=== PATIENT | female | born 1930 | race Caucasian/White ===

== ENCOUNTER → 2019-06-15 | Outpatient (CLI) | payer MEDICARE, MEDICAID ==
--- NOTE | 2019-06-15 13:53 | RADIOLOGY REPORT (SQ) ---
EXAM DESCRIPTION: CHEST 2 VIEWS COMPLETED DATE/TIME: 06/15/2019 1:41 pm REASON FOR STUDY: ENCTR FOR RESPIRATORY TB (Z11.1) COMPARISON: None. EXAM PARAMETERS: NUMBER OF VIEWS: two views TECHNIQUE: Digital Frontal and Lateral radiographic views of the chest acquired. RADIATION DOSE: NA LIMITATIONS: none FINDINGS: LUNGS AND PLEURA: Emphysematous change with chronic appearing interstitial opacities. No focal consolidation, pleural effusion or pneumothorax. MEDIASTINUM AND HILAR STRUCTURES: No discrete mass. HEART AND VASCULAR STRUCTURES: Enlarged cardiac silhouette. Aortic atherosclerosis. BONES: Decreased mineralization. Exaggerated thoracic kyphosis. Partially visualized reverse should er arthroplasty on the right. HARDWARE: Left-sided cardiac pacer with leads overlying right atrium and right ventricle. Surgical c lips overlie upper abdomen. Partially visualized shoulder arthroplasty on the right. OTHER: No other significant finding. IMPRESSION: Emphysematous change without evidence of acute cardiopulmonary process. Enlarged cardiac silhouette. TECHNICAL DOCUMENTATION: JOB ID: [id number] [employer]- All Rights Reserved Reading location - IP/workstation name: [email or web address]
== END ==
LOC: RAD 13:18
PROVIDERS: ATTEND Internal Medicine
DX: Z11.1 Encounter for screening for respiratory tuberculosis (principal)
CPT/HCPCS: 71046

== ENCOUNTER 2019-07-20 13:58 | Emergency (ER) | payer MEDICARE, MEDICAID ==
[2019-07-20] MEDS ORDERED: MORPHINE SULFATE 10 MG/ML INJ IV ONE ×2 (15:28→18:00)
[2019-07-20] MEDS ORDERED: ONDANSETRON HCL INJ/PF 4 MG/2 ML SDV IV ONE ×2 (15:29→18:00)
--- NOTE | 2019-07-20 15:35 | ER Document Report ---
ED General - General Chief Complaint: Vomiting Stated Complaint: WEAKNESS Time Seen by Provider: 07/20/19 15:13 TRAVEL OUTSIDE OF THE [place] IN LAST 30 DAYS: No - HPI Notes: Patient is an 89-year-old female, sent in for evaluation from the [facility] home. She is had increased malaise, notes that she said vomiting over the last several weeks. She states her belly feels bloated, and that she is having issues with constipation. She cannot tell me when her last bowel movement was, but states is always very firm. Her emesis has been nonbloody, nonbilious. She states primarily that it made up of the medicines that she has taken in the Glucerna she takes her medicine with. She complains of lower back pain, but really cannot give me a timeline on that. She does have a history of dementia. She states she is felt as if she had fever and chills, but there is no remark in the notes of any recent febrile illness. - Related Data Allergies/Adverse Reactions: No Known Allergies Allergy (Unverified 07/20/19 20:07) Home Medications: Atorvastatin, Eliquis, Lasix, melatonin, methimazole, Toprol, omeprazole, Ranexa, Risperdal, Zoloft, Tradjenta Past Medical History - General Information source: Patient, Outside Facility Records - Social History Smoking Status: Unknown if Ever Smoked Family History: Reviewed & Not Pertinent Patient has suicidal ideation: No Patient has homicidal ideation: No - Past Medical History Cardiac Medical History: Reports: Hx Atrial Fibrillation, Hx Congestive Heart Failure Endocrine Medical History: Reports: Hx Diabetes Mellitus Type 2, Hx Hyperthyroidism GI Medical History: Reports: Hx Gastroesophageal Reflux Disease Psychiatric Medical History: Reports: Hx Dementia Review of Systems - Review of Systems Constitutional: See HPI EENT: No symptoms reported Cardiovascular: No symptoms reported Respiratory: No symptoms reported Gastrointestinal: See HPI Genitourinary: No symptoms reported Musculoskeletal: See HPI Skin: No symptoms reported Neurological/Psychological: No symptoms reported Physical Exam - Vital signs Vitals: Resp Pulse Ox 18 99 07/20/19 14:13 07/20/19 14:13 - Notes Notes: This is a frail-appearing 89-year-old female, lying in the bed, leaning to her right side. She is breathing comfortably, but any attempt to move her causes significant low back pain. Head is normocephalic and atraumatic, pupils are equal round, reactive to light. Oral mucosa slightly dry. Heart is regular, lungs are clear to auscultation bilaterally. 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 Abdomen is distended, diffusely tender without rebound or guarding. No peritoneal signs. Extremities without cyanosis, clubbing, edema. No posterior calf tenderness. Peripheral pulses are equal. Patient is awake and alert, disoriented to time but pleasant and cooperative. Course - Re-evaluation Re-evalutation: 07/20/19 19:54 Patient presents emergency department for evaluation of some nausea and vomiting, over the last several weeks, as well as the abdominal pain. She is a poor historian secondary to her dementia. Catheterized urine specimen was obtained, and a significant amount of urine was drained from the bladder, over a liter. CT scan of the abdomen pelvis revealed bladder distention and urinary retention as well as fecal stasis. My strong suspicion is that it is the fecal stasis that was leading to this patient's urinary retention. Despite the large amount of urine in her bladder, she has no signs of hydronephrosis or hydroureter. Her creatinine is 1.33, I do not know if this is close to her baseline, but certainly it is not significant enough for me to be concerned about chronic urinary retention and resultant acute renal failure at this point. Laboratory ivestigations are otherwise unremarkable. Enema ordered, will continue to monitor. 07/20/19 22:01 Patient disimpacted, received part of an enema and had results. My suspicion is that this is all secondary to fecal stasis, constipation, fecal impaction. Again despite her urinary retention, she has no signs of hydronephrosis. She is feeling improved, resting comfortably, abdomen is soft. I will get and send her home with a prescription for Colace to be taken twice daily. She is to follow- up with primary care, return to the ED with worsening or new concerning symptoms of any sort. - Vital Signs Vital signs: Temp Pulse Resp BP Pulse Ox 98.8 F 76 15 118/52 L 100 07/20/19 18:21 07/20/19 14:15 07/20/19 21:01 07/20/19 21:00 07/20/19 21:01 - Laboratory Result Diagrams: 07/20/19 18:50 07/20/19 18:50 Laboratory results interpreted by me: 07/20/19 07/20/19 18:50 18:50 Hgb 11.9 L Hct 35.3 L MCV 79 L MCH 26.7 L RDW 16.4 H Sodium 133.3 L Chloride 91 L Carbon Dioxide 31 H BUN 48 H Creatinine 1.33 H Est GFR ( Amer) 46 L Est GFR (MDRD) Non-Af 38 L Glucose 214 H Albumin 3.4 L - Diagnostic Test Radiology reviewed: Reports reviewed Radiology results interpreted by me: 07/20/19 22:01 Abdomen/Pelvis CT 07/20/19 15:29 IMPRESSION: 1. Distended rectum and colon that are filled with fecal mature - correlate for clinical findings to exclude stercoral colitis and fecal impaction. 2. Distended urinary bladder - correlate with clinical findings to exclude outlet obstruction. - EKG Interpretation by Me Additional EKG results interpreted by me: 07/20/19 22:02 Atrial fib/flutter with ventricular paced escape beats. Rate of 75 bpm. Normal axis, nonspecific ST changes, but no acute changes concerning for ischemia or infarction. Discharge - Discharge Clinical Impression: Urinary retention, Fecal impaction Constipation Qualifiers: Constipation type: unspecified constipation type Qualified Code(s): K59.00 - Constipation, unspecified Condition: Stable Disposition: OTHER Instructions: Fecal Impaction ([facility]), Laxative ([facility]) Additional Instructions: Increase fluid intake, take Colace as needed for constipation. Follow-up with primary care next week. Return to the emergency department with worsening or new concerning symptoms of any sort.
--- NOTE | 2019-07-20 16:14 | RADIOLOGY REPORT (SQ) ---
EXAM DESCRIPTION: CT ABD/PELVIS NO ORAL OR IV COMPLETED DATE/TIME: 07/20/2019 3:44 pm REASON FOR STUDY: abdominal distension, bloating COMPARISON: None. TECHNIQUE: CT scan of the abdomen and pelvis performed without intravenous or oral contrast. Images reviewed with lung, soft tissue, and bone windows. Reconstructed coronal and sagittal MPR images revi ewed. All images stored on PACS. All CT scanners at this facility use dose modulation, iterative reconstruction, and/or weight based d osing when appropriate to reduce radiation dose to as low as reasonably achievable (ALARA). [facility]: Dose Right [facility]: CareDose [facility]: Dose Right [facility]: Teradose 4D [facility]: Smart [employer] RADIATION DOSE: CT Rad equipment meets quality standard of care and radiation dose reduction techniq ues were employed. CTDIvol: 7.8 mGy. DLP: 396 mGy-cm.mGy. LIMITATIONS: None. FINDINGS: LOWER CHEST: Cardiomegaly. No pericardial effusion, basilar consolidation, or pleural eff usion. NON-CONTRASTED LIVER, SPLEEN, ADRENALS: Evaluation is limited due to the absence of intravenous contr ast. The liver morphology is non cirrhotic. There is no CT evidence of hepatic steatosis. The sple en is normal in size. There is no abnormality of the adrenal glands. PANCREAS: There is no abnormality of the pancreas. GALLBLADDER: Surgically absent. RIGHT KIDNEY AND URETER: Evaluation is limited due to the absence of intravenous contrast. There is no hydronephrosis, nephrolithiasis, hydroureter or ureterolithiasis LEFT KIDNEY AND URETER: Evaluation is limited due to the absence of intravenous contrast. There is n o hydronephrosis, nephrolithiasis, hydroureter or ureterolithiasis. AORTA AND RETROPERITONEUM: No aneurysmal dilatation of the abdominal aorta. BOWEL AND PERITONEAL CAVITY: Hiatal hernia. The colon is distended and filled with fecal material. The rectum is also distended with fecal material and there is associated mural thickening. There is no pneumatosis, free intraperitoneal air or evidence of obstruction. There is pericolonic or perient javy inflammation. APPENDIX: Normal. PELVIS, BLADDER, AND ABDOMINAL WALL:The urinary bladder is distended. There is no pelvic adenopathy, free fluid or mass. There are findings of prior ventral hernia repair on the right side. There is no abdominal wall mass. BONES: Osteopenia and advanced degenerative spondylosis and facet arthropathy of the lumbar spine. T here is no fracture. OTHER: No other findings. IMPRESSION: 1. Distended rectum and colon that are filled with fecal mature - correlate for clinical findings to exclude stercoral colitis and fecal impaction. 2. Distended urinary bladder - correlate with clinical findings to exclude outlet obstruction. COMMENT: Quality ID # [id number]: Final reports with documentation of one or more dose reduction techniques (e.g., Automated exposure control, adjustment of the mA and/or kV according to patient size, use of iterative reconstruction technique) TECHNICAL DOCUMENTATION: JOB ID: [id number] [employer]- All Rights Reserved Reading location - IP/workstation name: [email or web address]
[2019-07-20 18:16] LABS: APPEARANCE,URINE CLEAR; BILIRUBIN,URINE NEGATIVE (NEGATIVE); COLOR,URINE AMBER; GLUCOSE, URINE NEGATIVE (NEGATIVE); KETONES,URINE NEGATIVE (NEGATIVE); LEUKOCYTE ESTERASE,URINE NEGATIVE (NEGATIVE); NITRITE,URINE NEGATIVE (NEGATIVE); PROTEIN,URINE NEGATIVE (NEGATIVE); URINE SPECIFIC GRAVITY 1.015; UROBILINOGEN,URINE NEGATIVE mg/dL (<2.0)
[2019-07-20 19:07] LABS: ABSOLUTE LYMPHOCYTES (AUTO) 1.5 10^3/uL (0.5-4.7); ABSOLUTE NEUT (AUTO) 7.3 10^3/uL (1.7-8.2); BASOPHILS % (AUTO) 0.4 % (0-2); EOSINOPHILS % (AUTO) 0.3 % (0-6); HEMATOCRIT 35.3 % (36.0-47.0); HEMOGLOBIN 11.9 g/dL (12.0-15.5); LYMPHOCYTES % (AUTO) 15.5 % (13-45); MEAN CORPUSCULAR HEMOGLOBIN 26.7 pg (27.0-33.4); MEAN CORPUSCULAR HGB CONC 33.7 g/dL (32.0-36.0); MEAN CORPUSCULAR VOLUME 79 fl (80-97); MONOCYTES % (AUTO) 10.1 % (3-13); PLATELET COUNT 329 10^3/uL (150-450); RED BLOOD COUNT 4.47 10^6/uL (3.72-5.28); RED CELL DISTRIBUTION WIDTH 16.4 % (11.5-14.0); SEGMENTED NEUTROPHILS % (AUTO) 73.7 % (42-78); TOTAL CELLS COUNTED % (AUTO) 100 %; WHITE BLOOD COUNT 9.9 10^3/uL (4.0-10.5)
[2019-07-20 19:22] LABS: ALBUMIN 3.4 g/dL (3.5-5.0); ALKALINE PHOSPHATASE 103 U/L (38-126); ANION GAP 11 (5-19); ASPARTATE AMINO TRANSFERASE 20 U/L (14-36); BILIRUBIN,DIRECT 0.4 mg/dL (0.0-0.4); BILIRUBIN,TOTAL 0.8 mg/dL (0.2-1.3); BLOOD UREA NITROGEN 48 mg/dL (7-20); CALCIUM 9.6 mg/dL (8.4-10.2); CARBON DIOXIDE 31 mmol/L (22-30); CHLORIDE 91 mmol/L (98-107); GLUCOSE 214 mg/dL (75-110); POTASSIUM 4.3 mmol/L (3.6-5.0); TOTAL PROTEIN 6.7 g/dL (6.3-8.2)
[2019-07-20 22:12] VITALS: BP 123/62
--- NOTE | 2019-07-20 23:11 | EKG REPORT ---
SEVERITY:- ABNORMAL ECG - AFIB/FLUT AND V-PACED COMPLEXES LOW VOLTAGE IN FRONTAL LEADS : Confirmed by: Ary Monsalve MD 20-Jul-2019 23:10:18
== END 2019-07-21 00:05 | disposition other institution (70) ==
LOC: ER 13:58
DX: K56.41 Fecal impaction (principal); R33.9 Retention of urine, unspecified; R53.81 Other malaise; R11.2 Nausea with vomiting, unspecified; M54.5 Low back pain; R10.9 Unspecified abdominal pain; F03.90 Unspecified dementia, unspecified severity, without behavioral disturbance, psychotic disturbance, mood disturbance, and anxiety; E11.9 Type 2 diabetes mellitus without complications; E05.90 Thyrotoxicosis, unspecified without thyrotoxic crisis or storm; K21.9 Gastro-esophageal reflux disease without esophagitis; Z79.84 Long term (current) use of oral hypoglycemic drugs; Z79.899 Other long term (current) drug therapy; Z79.02 Long term (current) use of antithrombotics/antiplatelets; Z95.0 Presence of cardiac pacemaker
CPT/HCPCS: 93005; 99285; 96374; 96375; 36415; 85025; 80053; 81001; 74176; 93010; J2270; J2405

== ENCOUNTER 2019-08-04 09:30 | Inpatient (IN) | payer MEDICARE, MEDICAID ==
--- NOTE | 2019-08-04 10:00 | ER Document Report ---
ED Medical Screen (RME) - General Stated Complaint: AMS Time Seen by Provider: 08/04/19 09:50 Mode of Arrival: Medic Information source: Transfer Record Notes: Patient presents as a transfer from the [facility] with complaints of altered mental status that started around 830 this morning. Patient normally is confused at her baseline although is verbal per the care facility. Patient presents awake alert, patient moaning but will respond appropriately to questions when asked here today. Patient was asked if she has pain and complained of back tenderness. Patient does have a strong smell to urine. I have greeted and performed a rapid initial assessment of this patient. A comprehensive ED assessment and evaluation of the patient, analysis of test results and completion of the medical decision making process will be conducted by additional ED providers. TRAVEL OUTSIDE OF THE [place] IN LAST 30 DAYS: No - Related Data Allergies/Adverse Reactions: No Known Allergies Allergy (Unverified 07/20/19 20:07) Past Medical History - Past Medical History Cardiac Medical History: Reports: Hx Atrial Fibrillation, Hx Congestive Heart Failure Endocrine Medical History: Reports: Hx Diabetes Mellitus Type 2, Hx Hyperthyroidism GI Medical History: Reports: Hx Gastroesophageal Reflux Disease Psychiatric Medical History: Reports: Hx Dementia Physical Exam - General Notes: Awake, moans but will answer simple questions appropriately. Strong smell to urine.
[2019-08-04 11:06] LABS: HEMATOCRIT 43.6 % (36.0-47.0); HEMOGLOBIN 14.2 g/dL (12.0-15.5); MEAN CORPUSCULAR HGB CONC 32.6 g/dL (32.0-36.0); MEAN CORPUSCULAR VOLUME 80 fl (80-97); PLATELET COUNT 462 10^3/uL (150-450); RED BLOOD COUNT 5.48 10^6/uL (3.72-5.28); RED CELL DISTRIBUTION WIDTH 16.6 % (11.5-14.0); WHITE BLOOD COUNT 11.7 10^3/uL (4.0-10.5)
--- NOTE | 2019-08-04 11:21 | RADIOLOGY REPORT (SQ) ---
EXAM DESCRIPTION: CT HEAD WITHOUT COMPLETED DATE/TIME: 08/04/2019 11:12 am REASON FOR STUDY: AMS COMPARISON: None. TECHNIQUE: Axial images acquired through the brain without intravenous contrast. Images reviewed wi th bone, brain and subdural windows. Additional sagittal and coronal reconstructions were generated. Images stored on PACS. All CT scanners at this facility use dose modulation, iterative reconstruction, and/or weight based d osing when appropriate to reduce radiation dose to as low as reasonably achievable (ALARA). [facility]: Dose Right [facility]: CareDose [facility]: Dose Right [facility]: Teradose 4D [facility]: Smart [employer] RADIATION DOSE: CT Rad equipment meets quality standard of care and radiation dose reduction techniq ues were employed. CTDIvol: 53.2 mGy. DLP: 1928 mGy-cm.mGy. LIMITATIONS: None. FINDINGS: VENTRICLES: Prominent. CEREBRUM: No masses. No hemorrhage. No midline shift. Areas of low density in the white matter mos t likely due to chronic micro-vascular ischemic change. No evidence for acute infarction. CEREBELLUM: No masses. No hemorrhage. No alteration of density. No evidence for acute infarction. EXTRAAXIAL SPACES: Age-related involutional change. No fluid collections. No masses. ORBITS AND GLOBE: No intra- or extraconal masses. Normal contour of globe without masses. CALVARIUM: No fracture. PARANASAL SINUSES: Marked leftward sphenoid sinus disease. SOFT TISSUES: No mass or hematoma. OTHER: No other significant finding. IMPRESSION: CHRONIC CHANGES OF ATROPHY AND MICROVASCULAR ISCHEMIA. Marked leftward sphenoid sinus disease. NO ACUTE PROCESS. EVIDENCE OF ACUTE STROKE: NO. TECHNICAL DOCUMENTATION: JOB ID: [id number] Quality ID # [id number]: Final reports with documentation of one or more dose reduction techniques (e.g., Au tomated exposure control, adjustment of the mA and/or kV according to patient size, use of iterative reconstruction technique) 2010 [employer]- All Rights Reserved Reading location - IP/workstation name: [email or web address]
[2019-08-04 11:25] LABS: ALKALINE PHOSPHATASE 123 U/L (38-126); ANION GAP 10 (5-19); ASPARTATE AMINO TRANSFERASE 37 U/L (14-36); BILIRUBIN,DIRECT 0.4 mg/dL (0.0-0.4); BILIRUBIN,TOTAL 0.9 mg/dL (0.2-1.3); BLOOD UREA NITROGEN 44 mg/dL (7-20); CARBON DIOXIDE 33 mmol/L (22-30); CHLORIDE 98 mmol/L (98-107); GLUCOSE 178 mg/dL (75-110); POTASSIUM 4.1 mmol/L (3.6-5.0); TOTAL PROTEIN 8.5 g/dL (6.3-8.2)
[2019-08-04 11:30] LABS: ABSOLUTE LYMPHOCYTES# (MANUAL) 2.6 10^3/uL (0.5-4.7); ABSOLUTE MONOCYTES # (MANUAL) 0.9 10^3/uL (0.1-1.4); BAND NEUTROPHILS % (MANUAL) 1 % (3-5); BASOPHILS % (MANUAL) 0 % (0-2); EOSINOPHILS % (MANUAL) 0 % (0-6); LYMPHOCYTES % (MANUAL) 22 % (13-45); METAMYELOCYTES % (MANUAL) 2 % (0); MONOCYTES % (MANUAL) 8 % (3-13); SEGMENTED NEUTROPHILS % (MAN) 67 % (42-78); TOTAL CELLS COUNTED 100
[2019-08-04] MEDS ORDERED: NORMAL SALINE 500 ML IV ONE ×2 (11:30→13:07)
[2019-08-04 11:31] LABS: ANISOCYTOSIS 1+; PLATELET COMMENT INCREASED; PLATELET GIANT PRESENT; PLATELET LARGE PRESENT
--- NOTE | 2019-08-04 11:31 | ER Document Report ---
ED Dizziness/Weakness - General Chief Complaint: Altered Mental Status Stated Complaint: AMS Time Seen by Provider: 08/04/19 09:50 Mode of Arrival: Medic Notes: Patient is a 89-year-old female with a history of Alzheimer's, diabetes, A. fib, congestive heart failure, acid reflux who presents to the emergency department with a chief complaint of confusion. Patient does reside at a [facility] facility. They report that around 830 the morning this morning they noticed that she was altered. They did report that her baseline is normally confused but she is verbal. They report she appears more tired than her normal. When asking the patient if she has any complaints she states that her lower back hurts. Patient is unable to give much of a history. Patient does have a strong odor of urine. TRAVEL OUTSIDE OF THE [place] IN LAST 30 DAYS: No - Related Data Allergies/Adverse Reactions: No Known Allergies Allergy (Unverified 07/20/19 20:07) Past Medical History - General Information source: Transfer Record - Social History Smoking Status: Unknown if Ever Smoked Chew tobacco use (# tins/day): No Lives with: Longterm Family History: Reviewed & Not Pertinent Patient has suicidal ideation: No Patient has homicidal ideation: No - Past Medical History Cardiac Medical History: Reports: Hx Atrial Fibrillation, Hx Congestive Heart Failure Pulmonary Medical History: Reports: None EENT Medical History: Reports: None Neurological Medical History: Reports: None Endocrine Medical History: Reports: Hx Diabetes Mellitus Type 2, Hx Hyperthyroidism Renal/ Medical History: Reports: None Malignancy Medical History: Reports: None GI Medical History: Reports: Hx Gastroesophageal Reflux Disease Musculoskeletal Medical History: Reports None Skin Medical History: Reports None Psychiatric Medical History: Reports: Hx Dementia Traumatic Medical History: Reports: None Infectious Medical History: Reports: None Review of Systems - Review of Systems Constitutional: See HPI EENT: No symptoms reported Cardiovascular: No symptoms reported Respiratory: No symptoms reported Gastrointestinal: No symptoms reported Genitourinary: See HPI Female Genitourinary: No symptoms reported Musculoskeletal: See HPI Skin: No symptoms reported Hematologic/Lymphatic: No symptoms reported Neurological/Psychological: No symptoms reported Physical Exam - Vital signs Vitals: Resp Pulse Ox 17 99 08/04/19 09:49 08/04/19 09:49 - Notes Notes: GENERAL: Sleeping, will arouse to verbal stimuli, appears dehydrated and lethargic. Confused. HEAD: Atraumatic, normocephalic. EYES: Pupils equal round and reactive to light, extraocular movements intact, sclera anicteric, conjunctiva are normal. ENT: Nares patent, oropharynx clear without exudates. Extremely dry mucous membranes. NECK: Normal range of motion, supple without lymphadenopathy or JVD. LUNGS: Breath sounds clear to auscultation bilaterally and equal. No wheezes rales or rhonchi. HEART: Regular rate and rhythm without murmurs, rubs or gallops. ABDOMEN: Soft, mild lower abdominal tenderness with palpation, hypoactive bowel sounds. No guarding, no rebound. No masses appreciated. BACK: No cervical, thoracic, lumbar midline tenderness. No saddle anesthesia, normal distal neurovascular exam. GENITOURINARY: Deferred. EXTREMITIES: Normal range of motion, no pitting or edema. No clubbing or cyanosis. NEUROLOGICAL: Hx. Dementia/Alzheimers, alert to self, aware of date of , unsure of why she is at the hospital, current president or year. PSYCH: Confused. SKIN: Warm, Dry, normal turgor, no rashes or lesions noted. Course - Re-evaluation Re-evalutation: 08/04/19 11:31 Also unable to obtain much of a history from the patient as she does have a history of Alzheimer's and dementia. Patient was sent here for evaluation as she appeared to be more confused than her normal. Patient is currently sleeping but will arouse to verbal stimuli. Basic labs including a urinalysis, head CT and chest x-ray were ordered by the triage provider. We will continue to monitor. Patient does not have any family at the bedside. Patient does appear quite dehydrated as her mouth and lips are extremely dry. Patient does have a history of congestive heart failure. Will initiate 500 mLs saline bolus to start. 08/04/19 13:08 Patient is noted to have a urinary tract infection. Patient does not have any significant leukocytosis. Patient does have an elevated BUN and creatinine which is just slightly worse than a few weeks ago. Patient tolerated first 500 mL's of saline without any difficulty or signs of fluid overload. Lungs are clear at this time. Will initiate a second 500 mL bolus of saline. Patient continues to sleep but does arouse with verbal stimuli. Patient does know her name and date of and that she is at the hospital. Patient does not have any current complaints. Unable to obtain much of a history from the patient due to her history of Alzheimer's and dementia. Will obtain a lactate to rule out sepsis. Patient is not tachycardic, hypotensive or febrile. 08/04/19 14:41 Patient has received a total of 1 L of saline via IV. Patient did tolerate this well. Patient remains normotensive, not tachycardic or hypoxic. Patient did receive 1 g of Rocephin for urinary tract infection. Upon reevaluation the patient will open her eyes to verbal stimuli, states that she is at the hospital but is not answering any other questions immediately falls right back to sleep. 08/04/19 15:01 I did consult with Prema Joiner nurse practitioner who will admit to the hospitalist service for altered mental status and urinary tract infection. I did attempt to call the patient's family member that was stated in the computer but there was no answer. - Vital Signs Vital signs: Temp Pulse Resp BP Pulse Ox 98.5 F 12 127/66 H 99 08/04/19 15:37 08/04/19 16:01 08/04/19 16:01 08/04/19 16:01 - Laboratory Result Diagrams: 08/04/19 10:45 08/04/19 10:45 Laboratory results interpreted by me: 08/04/19 08/04/19 08/04/19 10:45 10:45 12:00 WBC 11.7 H RBC 5.48 H MCH 26.0 L RDW 16.6 H Plt Count 462 H Band Neutrophils % 1 L Metamyelocytes % 2 H Carbon Dioxide 33 H BUN 44 H Creatinine 1.61 H Est GFR ( Amer) 37 L Est GFR (MDRD) Non-Af 30 L Glucose 178 H AST 37 H Total Protein 8.5 H Urine Blood SMALL H Urine Urobilinogen 2.0 H Ur Leukocyte Esterase SMALL H - Diagnostic Test Radiology reviewed: Reports reviewed Radiology results interpreted by me: 08/04/19 17:22 Laboratory 08/04/19 08/04/19 08/04/19 10:45 10:45 10:45 WBC 11.7 H RBC 5.48 H Hgb 14.2 Hct 43.6 MCV 80 MCH 26.0 L MCHC 32.6 RDW 16.6 H Plt Count 462 H Lymph % (Auto) Not Reportable Anderson % (Auto) Not Reportable Eos % (Auto) Not Reportable Baso % (Auto) Not Reportable Absolute Neuts (auto) Not Reportable Absolute Lymphs (auto) Not Reportable Absolute Monos (auto) Not Reportable Absolute Eos (auto) Not Reportable Absolute Basos (auto) Not Reportable Total Counted 100 Seg Neutrophils % Not Reportable Seg Neuts % (Manual) 67 Band Neutrophils % 1 L Lymphocytes % (Manual) 22 Monocytes % (Manual) 8 Eosinophils % (Manual) 0 Basophils % (Manual) 0 Metamyelocytes % 2 H Abs Neuts (Manual) 8.2 Abs Lymphs (Manual) 2.6 Abs Monocytes (Manual) 0.9 Absolute Eos (Manual) 0.0 Abs Basophils (Manual) 0.0 Large Platelets PRESENT Giant Platelets PRESENT Platelet Comment INCREASED Anisocytosis 1+ Sodium 140.5 Potassium 4.1 Chloride 98 Carbon Dioxide 33 H Anion Gap 10 BUN 44 H Creatinine 1.61 H Est GFR ( Amer) 37 L Est GFR (MDRD) Non-Af 30 L Glucose 178 H Lactic Acid Calcium 10.0 Magnesium 2.1 Total Bilirubin 0.9 Direct Bilirubin 0.4 Neonat Total Bilirubin Not Reportable Neonat Direct Bilirubin Not Reportable Neonat Indirect Bili Not Reportable AST 37 H ALT 28 Alkaline Phosphatase 123 Troponin I 0.014 Total Protein 8.5 H Albumin 4.0 Urine Color Urine Appearance Urine pH Ur Specific [place] Urine Protein Urine Glucose (UA) Urine Ketones Urine Blood Urine Nitrite Urine Bilirubin Urine Urobilinogen Ur Leukocyte Esterase Urine WBC (Auto) Urine RBC (Auto) Urine Bacteria (Auto) Urine WBC Clumps Squamous Epi Cells Auto Amorphous Sediment Auto Urine Mucus (Auto) Urine Ascorbic Acid 08/04/19 08/04/19 12:00 13:45 WBC RBC Hgb Hct MCV MCH MCHC RDW Plt Count Lymph % (Auto) Anderson % (Auto) Eos % (Auto) Baso % (Auto) Absolute Neuts (auto) Absolute Lymphs (auto) Absolute Monos (auto) Absolute Eos (auto) Absolute Basos (auto) Total Counted Seg Neutrophils % Seg Neuts % (Manual) Band Neutrophils % Lymphocytes % (Manual) Monocytes % (Manual) Eosinophils % (Manual) Basophils % (Manual) Metamyelocytes % Abs Neuts (Manual) Abs Lymphs (Manual) Abs Monocytes (Manual) Absolute Eos (Manual) Abs Basophils (Manual) Large Platelets Giant Platelets Platelet Comment Anisocytosis Sodium Potassium Chloride Carbon Dioxide Anion Gap BUN Creatinine Est GFR ( Amer) Est GFR (MDRD) Non-Af Glucose Lactic Acid 1.3 Calcium Magnesium Total Bilirubin Direct Bilirubin Neonat Total Bilirubin Neonat Direct Bilirubin Neonat Indirect Bili AST ALT Alkaline Phosphatase Troponin I Total Protein Albumin Urine Color DARK YELLOW Urine Appearance CLOUDY Urine pH 5.0 Ur Specific [place] 1.014 Urine Protein NEGATIVE Urine Glucose (UA) NEGATIVE Urine Ketones NEGATIVE Urine Blood SMALL H Urine Nitrite NEGATIVE Urine Bilirubin NEGATIVE Urine Urobilinogen 2.0 H Ur Leukocyte Esterase SMALL H Urine WBC (Auto) 45 Urine RBC (Auto) 6 Urine Bacteria (Auto) 2+ Urine WBC Clumps MANY Squamous Epi Cells Auto 1 Amorphous Sediment Auto TRACE Urine Mucus (Auto) RARE Urine Ascorbic Acid NEGATIVE Discharge - Discharge Clinical Impression: Lethargic Altered mental status Qualifiers: Altered mental status type: unspecified Qualified Code(s): R41.82 - Altered mental status, unspecified Urinary tract infection Qualifiers: Urinary tract infection type: site unspecified Hematuria presence: with hematuria Qualified Code(s): N39.0 - Urinary tract infection, site not specified Condition: Stable Disposition: ADMITTED INPATIENT Admitting Provider: Sadiq (Hospitalist) Unit Admitted: Telemetry
--- NOTE | 2019-08-04 11:37 | RADIOLOGY REPORT (SQ) ---
EXAM DESCRIPTION: CHEST SINGLE VIEW COMPLETED DATE/TIME: 08/04/2019 11:29 am REASON FOR STUDY: AMS COMPARISON: 06/15/2019 EXAM PARAMETERS: NUMBER OF VIEWS: One view. TECHNIQUE: Single frontal radiographic view of the chest acquired. RADIATION DOSE: NA LIMITATIONS: None. FINDINGS: LUNGS AND PLEURA: No opacities, masses or pneumothorax. No pleural effusion. MEDIASTINUM AND HILAR STRUCTURES: No masses. Contour normal. HEART AND VASCULAR STRUCTURES: Heart normal in size. Normal vasculature. BONES: Shoulder replacement on the right. HARDWARE: Cardiac hardware unchanged. OTHER: No other significant finding. IMPRESSION: NO ACUTE RADIOGRAPHIC FINDING IN THE CHEST. TECHNICAL DOCUMENTATION: JOB ID: [id number] [email or web address] All Rights Reserved Reading location - IP/workstation name: [email or web address]
[2019-08-04 12:20] LABS: AMORPHOUS SEDIMENT,URINE TRACE /HPF; APPEARANCE,URINE CLOUDY; BILIRUBIN,URINE NEGATIVE (NEGATIVE); GLUCOSE, URINE NEGATIVE (NEGATIVE); KETONES,URINE NEGATIVE (NEGATIVE); LEUKOCYTE ESTERASE,URINE SMALL (NEGATIVE); NITRITE,URINE NEGATIVE (NEGATIVE); PROTEIN,URINE NEGATIVE (NEGATIVE); URINE SPECIFIC GRAVITY 1.014
[2019-08-04 12:22] LABS: COLOR,URINE DARK YELLOW
[2019-08-04] MEDS ORDERED: CEFTRIAXONE 1 GM/D5W RTU 1 GM/50 ML RTUPB IV ONE (13:08)
[2019-08-04] MEDS ORDERED: MAG HYDROX/AL HYDROX/SIMETH SUSP 30 ML UDCUP PO PRN (15:12)
[2019-08-04] MEDS ORDERED: ALBUTEROL SULFATE 0.083% NEB 2.5 MG/3 ML AMPUL NEB PRN (15:12)
[2019-08-04] MEDS ORDERED: ONDANSETRON HCL INJ/PF 4 MG/2 ML SDV IV PRN (15:12)
[2019-08-04] MEDS ORDERED: MAGNESIUM HYDROXIDE SUSP 30 ML UDCUP PO PRN (15:12)
[2019-08-04] MEDS: NORMAL SALINE 1000 ML 1,000 ML IV PRN (16:06)
[2019-08-04] MEDS ORDERED: DEXTROSE 40% GEL 15 GM TUBE PO PRN ×2 (17:29)
[2019-08-04] MEDS ORDERED: DEXTROSE 50%-WATER 25 GM/50 ML DISP.SYRIN IV PRN ×2 (17:29)
[2019-08-04] MEDS ORDERED: GLUCAGON,HUMAN RECOMB 1 MG INJ IM PRN (17:29)
--- NOTE | 2019-08-04 17:29 | PDOC H&P ---
History of Present Illness Admission Date/PCP: 08/04/19 15:14 Patient complains of: Lethargy History of Present Illness: PENNY WALDEN is a 89 year old female with a past medical history significant for CHF, CAD, chronic atrial fibrillation (anticoagulated on low dose Eliquis) hypertension, hyperlipidemia, DM 2, hypothyroidism, GERD, chronic constipation, and advanced dementia who is a long-term resident at the [facility] in the custody of [facility] who presented to the emergency department via EMS for report of altered mental status. Evaluation in the emergency department revealed stable vital signs, mild leukocytosis (11.7), BETTINA (creatinine 1.61/BUN 44), urinalysis suggestive of UTI, EKG demonstrating atrial fibrillation, benign chest x-ray, and head CT revealing chronic changes of atrophy and microvascular ischemia with leftward sphenoid sinus disease. The patient is provided a 1 L normal saline bolus and empirically started on IV Rocephin. She has been referred to the hospitalist service for admission and management of the above-stated complaints and findings. Past Medical History Cardiac Medical History: Reports: Atrial Fibrillation, Congestive Heart Failure Pulmonary Medical History: Reports: None EENT Medical History: Reports: None Neurological Medical History: Reports: None Endocrine Medical History: Reports: Diabetes Mellitus Type 2, Hyperthyroidism Renal/ Medical History: Reports: None Malignancy Medical History: Reports: None GI Medical History: Reports: Gastroesophageal Reflux Disease Musculoskeltal Medical History: Reports: None Skin Medical History: Reports: None Psychiatric Medical History: Reports: Dementia Traumatic Medical History: Reports: None Infectious Medical History: Reports: None Past Surgical History Past Surgical History: unable to obtain r/t AMS Social History Information [facility] Lives with: Snf Smoking Status: Unknown if Ever Smoked - Advance Directive Resuscitation Status: Full Code Surrogate healthcare decision maker:: [facility]; Jeanna London Family History Family History: Unable to obtain related to altered mental status. Parental Family History Reviewed: No Children Family History Reviewed: No Sibling(s) Family History Reviewed.: No Medication/Allergy Home Medications: Acetaminophen [Tylenol 325 mg Tablet] 650 mg PO Q6HP PRN 08/04/19 Apixaban [Eliquis 2.5 mg Tablet] 2.5 mg PO BID 08/04/19 Atorvastatin Calcium [Lipitor 20 mg Tablet] 20 mg PO QHS 08/04/19 Cold Cream/Zinc Oxide/Star/Alexi [Dermacloud Ointment] 1 applic TP ASDIR PRN 08/04/19 Fluticasone Propionate [Flonase Nasal [place] 50 Mcg/[place] 16 gm] 1 spray NASL QPM 08/04/19 Furosemide [Lasix 20 mg Tablet] 20 mg PO DAILY 08/04/19 Guaifenesin [Robafen] 10 ml PO Q4HP PRN 08/04/19 Linagliptin [Tradjenta] 5 mg PO DAILY 08/04/19 Lubiprostone [Amitiza 24 Mcg Capsule] 24 mcg PO BID 08/04/19 Magnesium Hydroxide [Milk of Magnesia 30 ml Udcup] 30 ml PO ASDIR PRN 08/04/19 Methimazole [Northyx] 5 mg PO BID 08/04/19 Metoprolol Tartrate [Lopressor 50 mg Tablet] 50 mg PO Q12 08/04/19 Neomycin/Bacitracin/Polymyxinb [Triple Antibiotic Ointment] 1 each TP ASDIR PRN 08/04/19 Omeprazole 40 mg PO DAILY 08/04/19 Ranolazine [Ranolazine ER] 500 mg PO BID 08/04/19 Risperidone [Risperdal 1 mg Tablet] 1 mg PO Q12 08/04/19 Risperidone [Risperdal 1 mg Tablet] 1 mg PO Q6HP PRN 08/04/19 Solifenacin Succinate [Vesicare] 5 mg PO DAILY 08/04/19 Triamcinolone Acetonide [Aristocort 0.1% Cream 15 gm] 1 applic TP BIDP PRN 08/04/19 Allergies/Adverse Reactions: No Known Allergies Allergy (Unverified 07/20/19 20:07) Review of Systems ROS unobtainable: Due to mental status Physical Exam Vital Signs: Temp Pulse Resp BP Pulse Ox 98.5 F 12 127/66 H 99 08/04/19 15:37 08/04/19 16:01 08/04/19 16:01 08/04/19 16:01 Intake & Output 08/03/19 08/04/19 08/05/19 06:59 06:59 06:59 Intake Total 1050 Balance 1050 Weight 51.664 kg General appearance: PRESENT: no acute distress, thin, well-developed, well- nourished Head exam: PRESENT: atraumatic, normocephalic Eye exam: PRESENT: conjunctiva pink, EOMI, PERRLA. ABSENT: scleral icterus Mouth exam: PRESENT: dry mucosa, tongue midline Teeth exam: PRESENT: poor dentation Neck exam: ABSENT: carotid bruit, JVD, lymphadenopathy, thyromegaly Respiratory exam: PRESENT: clear to auscultation quiana, symmetrical, unlabored. ABSENT: rales, rhonchi, wheezes Cardiovascular exam: PRESENT: irregular rhythm, +S1, +S2. ABSENT: diastolic murmur, rubs, systolic murmur Pulses: PRESENT: +1 pedal pulses bilateral Vascular exam: PRESENT: normal capillary refill GI/Abdominal exam: PRESENT: normal bowel sounds, soft. ABSENT: distended, guarding, mass, organolmegaly, rebound, tenderness Rectal exam: PRESENT: deferred Gentrourinary exam: PRESENT: indwelling catheter Extremities exam: PRESENT: full ROM - Moves all extremities spontaneously. ABSENT: calf tenderness, clubbing, pedal edema Musculoskeletal exam: ABSENT: ambulatory - Bedbound at baseline Neurological exam: PRESENT: CN II-XII grossly intact, other - Lethargic; wakes easily, mumbles in response to questions. Disoriented/pleasantly confused but conversational at baseline. ABSENT: motor sensory deficit Skin exam: PRESENT: dry, intact, warm. ABSENT: cyanosis, rash Results Laboratory Results: 08/04/19 10:45 08/04/19 10:45 08/04/19 08/04/19 08/04/19 10:45 10:45 12:00 WBC 11.7 H RBC 5.48 H Hgb 14.2 Hct 43.6 MCV 80 MCH 26.0 L MCHC 32.6 RDW 16.6 H Plt Count 462 H Seg Neutrophils % Not Reportable Sodium 140.5 Potassium 4.1 Chloride 98 Carbon Dioxide 33 H Anion Gap 10 BUN 44 H Creatinine 1.61 H Est GFR ( Amer) 37 L Glucose 178 H Lactic Acid Calcium 10.0 Magnesium 2.1 Total Bilirubin 0.9 AST 37 H Alkaline Phosphatase 123 Total Protein 8.5 H Albumin 4.0 Urine Color DARK YELLOW Urine Appearance CLOUDY Urine pH 5.0 Ur Specific [place] 1.014 Urine Protein NEGATIVE Urine Glucose (UA) NEGATIVE Urine Ketones NEGATIVE Urine Blood SMALL H Urine Nitrite NEGATIVE Ur Leukocyte Esterase SMALL H Urine WBC (Auto) 45 Urine RBC (Auto) 6 08/04/19 13:45 WBC RBC Hgb Hct MCV MCH MCHC RDW Plt Count Seg Neutrophils % Sodium Potassium Chloride Carbon Dioxide Anion Gap BUN Creatinine Est GFR ( Amer) Glucose Lactic Acid 1.3 Calcium Magnesium Total Bilirubin AST Alkaline Phosphatase Total Protein Albumin Urine Color Urine Appearance Urine pH Ur Specific [place] Urine Protein Urine Glucose (UA) Urine Ketones Urine Blood Urine Nitrite Ur Leukocyte Esterase Urine WBC (Auto) Urine RBC (Auto) 08/04/19 10:45 Troponin I 0.014 Impressions: Chest X-Ray 08/04/19 09:57 IMPRESSION: NO ACUTE RADIOGRAPHIC FINDING IN THE CHEST. Head CT 08/04/19 09:57 IMPRESSION: CHRONIC CHANGES OF ATROPHY AND MICROVASCULAR ISCHEMIA. Marked leftward sphenoid sinus disease. NO ACUTE PROCESS. EVIDENCE OF ACUTE STROKE: NO. Assessment and Plan - Diagnosis (1) Acute encephalopathy Is this a current diagnosis for this admission?: Yes Plan: Multifactorial secondary to UTI and BETTINA; complicated by advanced dementia. Patient is admitted to the medical floor on continuous cardiac telemetry. Supportive care. Fall precautions. Management as below. (2) Urinary tract infection Qualifiers: Urinary tract infection type: site unspecified Hematuria presence: with hematuria Qualified Code(s): N39.0 - Urinary tract infection, site not specified; R31.9 - Hematuria, unspecified Is this a current diagnosis for this admission?: Yes Plan: Blood and urine cultures are pending. Continue empiric treatment with IV Rocephin. Will adjust as cultures result. (3) Acute kidney injury Is this a current diagnosis for this admission?: Yes Plan: Patient received a 1 L normal saline bolus by the ED provider. We will continue gentle maintenance IV fluids until the patient is tolerating adequate oral intake. Avoid nephrotoxic medications as able. Optimize cardiac function. Monitor with daily chemistries. (4) Dementia Is this a current diagnosis for this admission?: Yes Plan: Management of acute encephalopathy as above. Supportive care. Fall precautions. Continue scheduled Risperdal. (5) Hyperthyroidism Is this a current diagnosis for this admission?: Yes Plan: Continue home dose metoprolol. Continue home dose methimazole (6) Diabetes Qualifiers: Diabetes mellitus type: type 2 Diabetes mellitus emblem cutter insulin use: without correction use Is this a current diagnosis for this admission?: Yes Plan: Holding oral medications while admitted. Accu-Cheks before meals and at bedtime with sliding scale coverage. Hypoglycemia protocol in place. - Time Time Spent with patient: 35 or more minutes Medications reviewed and adjusted accordingly: Yes Anticipated discharge: Home - Inpatient Certification Based on my medical assessment, after consideration of the patient's comorbidities, presenting symptoms, or acuity I expect that the services needed warrant INPATIENT care.: Yes I certify that my determination is in accordance with my understanding of Medicare's requirements for reasonable and necessary INPATIENT services [42 CFR 412.3e].: Yes Medical Necessity: Need Close Monitoring Due to Risk of Patient Decompensation, Need For IV Fluids, Need for IV Antibiotics, Risk of Diagnosis Which Will Require Inpatient Eval/Care/Monitoring
[2019-08-04] MEDS: FLUTICASONE NASAL SPRAY 50 MCG/SPRY 120 SPRAY/16 GM NASL SCH (18:55)
[2019-08-04] MEDS: LUBIPROSTONE 24 MCG CAPSULE PO SCH (19:45)
[2019-08-04] MEDS: METHIMAZOLE 5 MG TABLET PO SCH (19:46)
[2019-08-04] MEDS: INSULIN LISPRO 100 UNIT/ML 3 ML VIAL SUBCUT SCH (21:25)
[2019-08-04] MEDS ORDERED: HEPARIN SOD (PORCINE) 5,000 UNIT/ML 1 ML VIAL SUBCUT SCH (22:00)
[2019-08-04] MEDS: APIXABAN 2.5 MG TABLET PO SCH (22:23)
[2019-08-04] MEDS: METOPROLOL TARTRATE 50 MG TABLET PO SCH (22:31)
[2019-08-04] MEDS: RANOLAZINE 500 MG TAB.SR.12H PO SCH (22:33)
[2019-08-04] MEDS: RISPERIDONE 1 MG TABLET PO SCH (22:34)
[2019-08-05] MEDS: NORMAL SALINE 1000 ML 1,000 ML IV PRN (01:23)
[2019-08-05] MEDS: PANTOPRAZOLE SODIUM 40 MG TABLET.DR PO SCH (05:07)
[2019-08-05 06:29] LABS: ANION GAP 7 (5-19); BLOOD UREA NITROGEN 32 mg/dL (7-20); CALCIUM 8.9 mg/dL (8.4-10.2); CARBON DIOXIDE 29 mmol/L (22-30); CHLORIDE 105 mmol/L (98-107); GLUCOSE 97 mg/dL (75-110); POTASSIUM 3.7 mmol/L (3.6-5.0)
[2019-08-05 06:31] LABS: HEMATOCRIT 37.9 % (36.0-47.0); HEMOGLOBIN 12.2 g/dL (12.0-15.5); MEAN CORPUSCULAR HEMOGLOBIN 25.7 pg (27.0-33.4); MEAN CORPUSCULAR HGB CONC 32.3 g/dL (32.0-36.0); MEAN CORPUSCULAR VOLUME 80 fl (80-97); PLATELET COUNT 316 10^3/uL (150-450); RED BLOOD COUNT 4.75 10^6/uL (3.72-5.28); RED CELL DISTRIBUTION WIDTH 16.6 % (11.5-14.0); WHITE BLOOD COUNT 7.6 10^3/uL (4.0-10.5)
[2019-08-05 06:40] LABS: FREE T4 (FREE THYROXINE) 1.65 ng/dL (0.78-2.19)
[2019-08-05 06:54] LABS: THYROID STIMULATING HORMONE 1.13 uIU/mL (0.47-4.68)
[2019-08-05] MEDS ORDERED: (PENDING PHARMACY ID) (Solifenacin Succinate [Vesicare] 5 MG) PO SCH (10:00)
--- NOTE | 2019-08-05 14:29 | PDOC PROGRESS REPORT ---
Subjective Progress Note for:: 08/05/19 Subjective:: PENNY WALDEN is a 89 year old female with a past medical history significant for CHF, CAD, chronic atrial fibrillation (anticoagulated on low dose Eliquis) hypertension, hyperlipidemia, DM 2, hypothyroidism, GERD, chronic constipation, and advanced dementia who is a long-term resident at the [facility] in the custody of [facility] and was admitted 08/04/2019 for altered mental status (primarily lethargy/decreased responsiveness) and UTI. Patient was seen on morning rounds. She is found resting in bed comfortably on nasal cannula; she is not home O2 dependent. She was sleeping soundly and only woke slightly when I set her name. She quickly fell back to sleep. Per nursing, patient has been intermittently declining medications. ROS is limited secondary to mental status. No concerns per nursing. Reason For Visit: UTI, AMS Physical Exam Vital Signs: Temp Pulse Resp BP Pulse Ox 98.2 F 61 17 134/60 H 96 08/05/19 11:00 08/05/19 11:00 08/05/19 11:00 08/05/19 11:00 08/05/19 11:00 Intake & Output 08/04/19 08/05/19 08/06/19 06:59 06:59 06:59 Intake Total 1978 Output Total 300 Balance 1678 Weight 51.5 kg General appearance: PRESENT: no acute distress, thin, well-developed Head exam: PRESENT: atraumatic, normocephalic Eye exam: PRESENT: conjunctiva pink, EOMI, PERRLA. ABSENT: scleral icterus Ear exam: PRESENT: normal external ear exam Mouth exam: PRESENT: moist, tongue midline Teeth exam: PRESENT: edentulous Neck exam: ABSENT: carotid bruit, JVD, lymphadenopathy, thyromegaly Respiratory exam: PRESENT: clear to auscultation quiana, symmetrical, unlabored. ABSENT: rales, rhonchi, wheezes Cardiovascular exam: PRESENT: irregular rhythm, +S1, +S2. ABSENT: diastolic murmur, rubs, systolic murmur Pulses: PRESENT: normal dorsalis pedis pul Vascular exam: PRESENT: normal capillary refill GI/Abdominal exam: PRESENT: normal bowel sounds, soft. ABSENT: distended, guarding, mass, organolmegaly, rebound, tenderness Rectal exam: PRESENT: deferred Extremities exam: PRESENT: full ROM. ABSENT: calf tenderness, clubbing, pedal edema Musculoskeletal exam: ABSENT: ambulatory - Bedbound at baseline Neurological exam: PRESENT: CN II-XII grossly intact, other - Sleeping soundly. ABSENT: motor sensory deficit Skin exam: PRESENT: dry, intact, warm. ABSENT: cyanosis, rash Results Laboratory Results: 08/05/19 05:14 08/05/19 05:14 08/04/19 08/05/19 08/05/19 13:45 05:14 05:14 WBC 7.6 RBC 4.75 Hgb 12.2 Hct 37.9 MCV 80 MCH 25.7 L MCHC 32.3 RDW 16.6 H Plt Count 316 Sodium Potassium Chloride Carbon Dioxide Anion Gap BUN Creatinine Est GFR ( Amer) Glucose Lactic Acid 1.3 Calcium TSH 1.13 Free T4 1.65 08/05/19 05:14 WBC RBC Hgb Hct MCV MCH MCHC RDW Plt Count Sodium 141.2 Potassium 3.7 Chloride 105 Carbon Dioxide 29 Anion Gap 7 BUN 32 H Creatinine 1.23 Est GFR ( Amer) 50 L Glucose 97 Lactic Acid Calcium 8.9 TSH Free T4 08/04/19 10:45 Troponin I 0.014 Impressions: Chest X-Ray 08/04/19 09:57 IMPRESSION: NO ACUTE RADIOGRAPHIC FINDING IN THE CHEST. Head CT 08/04/19 09:57 IMPRESSION: CHRONIC CHANGES OF ATROPHY AND MICROVASCULAR ISCHEMIA. Marked leftward sphenoid sinus disease. NO ACUTE PROCESS. EVIDENCE OF ACUTE STROKE: NO. Assessment and Plan - Diagnosis (1) Acute encephalopathy Is this a current diagnosis for this admission?: Yes Plan: Multifactorial secondary to UTI and BETTINA; complicated by advanced dementia. Patient is admitted to the medical floor on continuous cardiac telemetry. Supportive care. Fall precautions. Management as below. (2) Urinary tract infection Qualifiers: Urinary tract infection type: site unspecified Hematuria presence: with hematuria Qualified Code(s): N39.0 - Urinary tract infection, site not s pecified; R31.9 - Hematuria, unspecified Is this a current diagnosis for this admission?: Yes Plan: Blood cultures are pending. Urine cultures show gram-negative rods. Continue empiric treatment with IV Rocephin. Will adjust as cultures result. (3) Acute kidney injury Is this a current diagnosis for this admission?: Yes Plan: Resolved; creatinine 1.61 on admission, now 1.23. We will continue gentle maintenance IV fluids until the patient is tolerating adequate oral intake. Avoid nephrotoxic medications as able. Optimize cardiac function. Monitor with daily chemistries. (4) Dementia Is this a current diagnosis for this admission?: Yes Plan: Management of acute encephalopathy as above. Supportive care. Fall precautions. Continue scheduled Risperdal. Of note, the patient is in the custody of [facility]; all goals of care discussions with need to be directed to their office. (5) Hyperthyroidism Is this a current diagnosis for this admission?: Yes Plan: Continue home dose metoprolol. Continue home dose methimazole (6) Diabetes Qualifiers: Diabetes mellitus type: type 2 Diabetes mellitus fci insulin use: without fci use Is this a current diagnosis for this admission?: Yes Plan: A1C 8.0% Holding oral medications while admitted; recommend resuming at discharge. A1C goal for a patient of her age and life expectancy is less than 8.5%. Accu-Cheks before meals and at bedtime with sliding scale coverage. Hypoglycemia protocol in place. - Time Time Spent with patient: 15-24 minutes Medications reviewed and adjusted accordingly: Yes Anticipated discharge: Home Within: within 72 hours
[2019-08-05] MEDS: CEFTRIAXONE 1 GM/D5W RTU 1 GM/50 ML RTUPB IV SCH (15:24)
[2019-08-05] MEDS ORDERED: RISPERIDONE 1 MG TABLET PO PRN (17:03)
[2019-08-05] MEDS: METOPROLOL TARTRATE 50 MG TABLET PO SCH ×2 (18:22→22:00)
[2019-08-05] MEDS: APIXABAN 2.5 MG TABLET PO SCH (18:22)
[2019-08-05] MEDS: RISPERIDONE 1 MG TABLET PO SCH ×2 (18:23→22:00)
[2019-08-05] MEDS: TOLTERODINE TARTRATE 1 MG TABLET PO SCH ×2 (18:30→21:26)
[2019-08-05] MEDS: RANOLAZINE 500 MG TAB.SR.12H PO SCH ×2 (18:30→21:26)
[2019-08-05] MEDS: LUBIPROSTONE 24 MCG CAPSULE PO SCH (18:30)
[2019-08-05] MEDS: DOCUSATE SODIUM 100 MG CAPSULE PO SCH (18:30)
[2019-08-05] MEDS: METHIMAZOLE 5 MG TABLET PO SCH ×2 (18:30→18:48)
[2019-08-05] MEDS: FLUTICASONE NASAL SPRAY 50 MCG/SPRY 120 SPRAY/16 GM NASL SCH (18:31)
[2019-08-05] MEDS: ACETAMINOPHEN 325 MG TABLET PO PRN (18:46)
[2019-08-05] MEDS: INSULIN LISPRO 100 UNIT/ML 3 ML VIAL SUBCUT SCH (21:28)
[2019-08-05] MEDS: ATORVASTATIN CALCIUM 20 MG TABLET PO SCH (22:00)
--- NOTE | 2019-08-06 00:57 | EKG REPORT ---
SEVERITY:- ABNORMAL ECG - ATRIAL FIBRILLATION, V-RATE 70-90 CONSIDER ANTEROSEPTAL INFARCT : Confirmed by: Cherelle Mckenzie 06-Aug-2019 00:56:13
[2019-08-06 03:44] LABS: AMORPHOUS SEDIMENT,URINE 1+ /HPF; APPEARANCE,URINE TURBID; BILIRUBIN,URINE NEGATIVE (NEGATIVE); COLOR,URINE YELLOW; GLUCOSE, URINE NEGATIVE (NEGATIVE); KETONES,URINE NEGATIVE (NEGATIVE); LEUKOCYTE ESTERASE,URINE MODERATE (NEGATIVE); NITRITE,URINE NEGATIVE (NEGATIVE); PROTEIN,URINE 100 mg/dL (NEGATIVE); URINE SPECIFIC GRAVITY 1.006; UROBILINOGEN,URINE NEGATIVE mg/dL (<2.0)
[2019-08-06 03:58] LABS: HEMATOCRIT 38.6 % (36.0-47.0); HEMOGLOBIN 12.6 g/dL (12.0-15.5); MEAN CORPUSCULAR HGB CONC 32.6 g/dL (32.0-36.0); MEAN CORPUSCULAR VOLUME 80 fl (80-97); PLATELET COUNT 299 10^3/uL (150-450); RED BLOOD COUNT 4.83 10^6/uL (3.72-5.28); RED CELL DISTRIBUTION WIDTH 16.6 % (11.5-14.0); WHITE BLOOD COUNT 8.6 10^3/uL (4.0-10.5)
[2019-08-06 04:28] LABS: ANION GAP 7 (5-19); BLOOD UREA NITROGEN 19 mg/dL (7-20); CALCIUM 9.2 mg/dL (8.4-10.2); CARBON DIOXIDE 27 mmol/L (22-30); CHLORIDE 105 mmol/L (98-107); GLUCOSE 97 mg/dL (75-110); POTASSIUM 3.7 mmol/L (3.6-5.0)
[2019-08-06] MEDS: PANTOPRAZOLE SODIUM 40 MG TABLET.DR PO SCH (05:56)
[2019-08-06] MEDS: APIXABAN 2.5 MG TABLET PO SCH ×3 (06:01→23:47)
[2019-08-06] MEDS: INSULIN LISPRO 100 UNIT/ML 3 ML VIAL SUBCUT SCH ×6 (07:29→22:00)
[2019-08-06] MEDS: LUBIPROSTONE 24 MCG CAPSULE PO SCH ×2 (09:42→17:44)
[2019-08-06] MEDS: METHIMAZOLE 5 MG TABLET PO SCH ×2 (09:42→17:44)
[2019-08-06] MEDS: METOPROLOL TARTRATE 50 MG TABLET PO SCH ×2 (09:42→23:48)
[2019-08-06] MEDS: RANOLAZINE 500 MG TAB.SR.12H PO SCH ×2 (09:42→23:54)
[2019-08-06] MEDS: TOLTERODINE TARTRATE 1 MG TABLET PO SCH ×2 (09:42→23:47)
[2019-08-06] MEDS: RISPERIDONE 1 MG TABLET PO SCH ×2 (09:42→23:54)
[2019-08-06] MEDS: DOCUSATE SODIUM 100 MG CAPSULE PO SCH (09:43)
[2019-08-06] MEDS: CEFTRIAXONE 1 GM/D5W RTU 1 GM/50 ML RTUPB IV SCH (09:47)
[2019-08-06] MEDS ORDERED: ONDANSETRON HCL INJ/PF 4 MG/2 ML SDV IV PRN (15:00)
[2019-08-06] MEDS ORDERED: HYDRALAZINE HCL INJ/PF 20 MG/1 ML SDV IV PRN (15:46)
[2019-08-06] MEDS ORDERED: RISPERIDONE 1 MG TABLET PO PRN (15:51)
--- NOTE | 2019-08-06 15:55 | PDOC PROGRESS REPORT ---
Subjective Progress Note for:: 08/06/19 Subjective:: PENNY WALDEN is a 89 year old female with a past medical history significant for CHF, CAD, chronic atrial fibrillation (anticoagulated on low dose Eliquis) hypertension, hyperlipidemia, DM 2, hypothyroidism, GERD, chronic constipation, and advanced dementia who is a long-term resident at the [facility] in the custody of [facility] and was admitted 08/04/2019 for altered mental status (primarily lethargy/decreased responsiveness) and UTI. Patient was seen on morning rounds. She is found resting in bed comfortably on room air. She was sleeping soundly and only woke slightly when I said her name. She does shake her head no when I ask if she is hungry or thirsty but does not answer any other questions or follow directions. ROS is limited secondary to mental status. Nursing reports urinary retention; bladder scans 500-800ml Reason For Visit: ACUTE ENCEPHALOPATHY,BETTINA,UTI Physical Exam Vital Signs: Temp Pulse Resp BP Pulse Ox 97.4 F 87 14 180/69 H 98 08/06/19 08:20 08/06/19 09:23 08/06/19 09:23 08/06/19 08:20 08/06/19 09:23 Intake & Output 08/05/19 08/06/19 08/07/19 06:59 06:59 06:59 Intake Total 0081 906 0994 Output Total 300 1200 Balance 1678 -510 1050 Weight 51.5 kg 53.9 kg General appearance: PRESENT: no acute distress, thin, well-developed Head exam: PRESENT: atraumatic, normocephalic Eye exam: PRESENT: conjunctiva pink, EOMI, PERRLA. ABSENT: scleral icterus Mouth exam: PRESENT: moist, tongue midline Teeth exam: PRESENT: edentulous Respiratory exam: PRESENT: clear to auscultation quiana, symmetrical, unlabored. ABSENT: rales, rhonchi, wheezes Cardiovascular exam: PRESENT: irregular rhythm, +S1, +S2. ABSENT: diastolic murmur, rubs, systolic murmur Pulses: PRESENT: normal dorsalis pedis pul Vascular exam: PRESENT: normal capillary refill GI/Abdominal exam: PRESENT: normal bowel sounds, soft. ABSENT: distended, guarding, mass, organolmegaly, rebound, tenderness Rectal exam: PRESENT: deferred Extremities exam: PRESENT: full ROM. ABSENT: calf tenderness, clubbing, pedal edema Neurological exam: PRESENT: CN II-XII grossly intact, other - lethargic, wakes briefly. Disorientated x4 and confused but conversational at baseline.. ABSENT: motor sensory deficit Skin exam: PRESENT: dry, intact, warm. ABSENT: cyanosis, rash Results Laboratory Results: 08/06/19 03:39 08/06/19 03:39 08/06/19 08/06/19 08/06/19 02:00 03:39 03:39 WBC 8.6 RBC 4.83 Hgb 12.6 Hct 38.6 MCV 80 MCH 26.0 L MCHC 32.6 RDW 16.6 H Plt Count 299 Sodium 139.4 Potassium 3.7 Chloride 105 Carbon Dioxide 27 Anion Gap 7 BUN 19 Creatinine 0.93 Est GFR ( Amer) > 60 Glucose 97 Calcium 9.2 Urine Color YELLOW Urine Appearance TURBID Urine pH 5.0 Ur Specific [place] 1.006 Urine Protein 100 H Urine Glucose (UA) NEGATIVE Urine Ketones NEGATIVE Urine Blood MODERATE H Urine Nitrite NEGATIVE Ur Leukocyte Esterase MODERATE H Urine WBC (Auto) >182 Urine RBC (Auto) >182 08/04/19 10:45 Troponin I 0.014 Impressions: Chest X-Ray 08/04/19 09:57 IMPRESSION: NO ACUTE RADIOGRAPHIC FINDING IN THE CHEST. Head CT 08/04/19 09:57 IMPRESSION: CHRONIC CHANGES OF ATROPHY AND MICROVASCULAR ISCHEMIA. Marked leftward sphenoid sinus disease. NO ACUTE PROCESS. EVIDENCE OF ACUTE STROKE: NO. Assessment and Plan - Diagnosis (1) Acute encephalopathy Is this a current diagnosis for this admission?: Yes Plan: Multifactorial secondary to UTI and BETTINA; complicated by advanced dementia. Patient is admitted to the medical floor on continuous cardiac telemetry. We will decrease home dose Risperdal and further avoid sedating medications. Supportive care. Fall precautions. Management as below. (2) Urinary tract infection Qualifiers: Urinary tract infection type: site unspecified Hematuria presence: with hematuria Qualified Code(s): N39.0 - Urinary tract infection, site not specified; R31.9 - Hematuria, unspecified Is this a current diagnosis for this admission?: Yes Plan: Blood cultures are negative at 24 hours Urine cultures show pansensitive E. coli Continue empiric treatment with IV Rocephin; day #2. Will continue as patient is not adequately taking p.o. (3) Acute kidney injury Is this a current diagnosis for this admission?: Yes Plan: Resolved; creatinine 1.61 on admission, now0.93. We will continue gentle maintenance IV fluids until the patient is tolerating adequate oral intake. Avoid nephrotoxic medications as able. Optimize cardiac function. Monitor with daily chemistries. (4) Dementia Is this a current diagnosis for this admission?: Yes Plan: Management of acute encephalopathy as above. Supportive care. Fall precautions. Continue scheduled Risperdal. Of note, the patient is in the custody of [facility]; all goals of care discussions with need to be directed to their office. (5) Hyperthyroidism Is this a current diagnosis for this admission?: Yes Plan: Continue home dose metoprolol. Continue home dose methimazole (6) Diabetes Qualifiers: Diabetes mellitus type: type 2 Diabetes mellitus intermediate accountant insulin use: wit hout intermediate accountant use Is this a current diagnosis for this admission?: Yes Plan: A1C 8.0% Holding oral medications while admitted; recommend resuming at discharge. A1C goal for a patient of her age and life expectancy is less than 8.5%. Accu-Cheks before meals and at bedtime with sliding scale coverage. Hypoglycemia protocol in place. (7) Urinary retention Is this a current diagnosis for this admission?: Yes Plan: Bladder scans consistently greater than 500 mL's. Likely secondary to acute cystitis. Straight cath every 6 hours as needed. Start Flomax. Continue home dose Detrol. - Time Time Spent with patient: 15-24 minutes Medications reviewed and adjusted accordingly: Yes Anticipated discharge: Home - Resident at [facility] Within: within 24 hours - Once adequately taking p.o
[2019-08-06] MEDS: TAMSULOSIN HCL 0.4 MG CAP.SR.24H PO SCH (17:44)
[2019-08-06] MEDS: FLUTICASONE NASAL SPRAY 50 MCG/SPRY 120 SPRAY/16 GM NASL SCH (17:44)
[2019-08-06] MEDS: ACETAMINOPHEN 325 MG TABLET PO PRN (20:14)
[2019-08-06] MEDS: NORMAL SALINE 1000 ML 1,000 ML IV PRN (20:14)
[2019-08-06] MEDS ORDERED: RISPERIDONE 1 MG TABLET PO SCH (22:00)
[2019-08-06] MEDS: ATORVASTATIN CALCIUM 20 MG TABLET PO SCH (23:53)
[2019-08-07] MEDS: PANTOPRAZOLE SODIUM 40 MG TABLET.DR PO SCH (05:53)
[2019-08-07 06:38] LABS: HEMATOCRIT 45.2 % (36.0-47.0); MEAN CORPUSCULAR HEMOGLOBIN 25.9 pg (27.0-33.4); MEAN CORPUSCULAR HGB CONC 32.8 g/dL (32.0-36.0); MEAN CORPUSCULAR VOLUME 79 fl (80-97); PLATELET COUNT 226 10^3/uL (150-450); RED BLOOD COUNT 5.72 10^6/uL (3.72-5.28); RED CELL DISTRIBUTION WIDTH 16.7 % (11.5-14.0)
[2019-08-07 06:47] LABS: HEMOGLOBIN 14.8 g/dL (12.0-15.5)
[2019-08-07 06:52] LABS: ANION GAP 9 (5-19); BLOOD UREA NITROGEN 14 mg/dL (7-20); CALCIUM 8.9 mg/dL (8.4-10.2); CARBON DIOXIDE 22 mmol/L (22-30); CHLORIDE 103 mmol/L (98-107); GLUCOSE 72 mg/dL (75-110); POTASSIUM 3.7 mmol/L (3.6-5.0)
[2019-08-07] MEDS: INSULIN LISPRO 100 UNIT/ML 3 ML VIAL SUBCUT SCH ×4 (07:48→22:09)
[2019-08-07] MEDS: CEFTRIAXONE 1 GM/D5W RTU 1 GM/50 ML RTUPB IV SCH (09:58)
[2019-08-07] MEDS: METOPROLOL TARTRATE 50 MG TABLET PO SCH ×2 (10:05→22:10)
[2019-08-07] MEDS: APIXABAN 2.5 MG TABLET PO SCH ×2 (10:05→22:11)
[2019-08-07] MEDS: LUBIPROSTONE 24 MCG CAPSULE PO SCH ×2 (10:09→17:57)
[2019-08-07] MEDS: RANOLAZINE 500 MG TAB.SR.12H PO SCH ×2 (10:09→22:12)
[2019-08-07] MEDS: DOCUSATE SODIUM 100 MG CAPSULE PO SCH (10:09)
[2019-08-07] MEDS: TOLTERODINE TARTRATE 1 MG TABLET PO SCH ×2 (10:09→22:11)
[2019-08-07] MEDS: METHIMAZOLE 5 MG TABLET PO SCH ×2 (10:09→17:57)
[2019-08-07] MEDS: RISPERIDONE 1 MG TABLET PO SCH ×2 (10:10→22:13)
--- NOTE | 2019-08-07 12:08 | PDOC PROGRESS REPORT ---
Subjective Progress Note for:: 08/07/19 Subjective:: 08/07/19 Reason For Visit: ACUTE ENCEPHALOPATHY,BETTINA,UTI Physical Exam Vital Signs: Temp Pulse Resp BP Pulse Ox 98.5 F 65 16 153/89 H 100 08/07/19 07:33 08/07/19 07:33 08/07/19 07:33 08/07/19 07:33 08/07/19 07:33 Intake & Output 08/06/19 08/07/19 08/08/19 06:59 06:59 06:59 Intake Total 690 1290 50 Output Total 1200 761 Balance -510 529 50 Weight 53.9 kg 54.5 kg Results Laboratory Results: 08/07/19 04:46 08/07/19 04:46 08/07/19 08/07/19 04:46 04:46 WBC 7.0 RBC 5.72 H Hgb 14.8 D Hct 45.2 MCV 79 L MCH 25.9 L MCHC 32.8 RDW 16.7 H Plt Count 226 Sodium 134.4 L Potassium 3.7 Chloride 103 Carbon Dioxide 22 Anion Gap 9 BUN 14 Creatinine 0.86 Est GFR ( Amer) > 60 Glucose 72 L Calcium 8.9 08/04/19 10:45 Troponin I 0.014 Impressions: Chest X-Ray 08/04/19 09:57 IMPRESSION: NO ACUTE RADIOGRAPHIC FINDING IN THE CHEST. Head CT 08/04/19 09:57 IMPRESSION: CHRONIC CHANGES OF ATROPHY AND MICROVASCULAR ISCHEMIA. Marked leftward sphenoid sinus disease. NO ACUTE PROCESS. EVIDENCE OF ACUTE STROKE: NO.
--- NOTE | 2019-08-07 12:24 | PDOC PROGRESS REPORT ---
Subjective Progress Note for:: 08/07/19 Subjective:: 08/07/19 08/07/2019 patient was admitted for altered mental status secondary to UTI, patient is improving Reason For Visit: ACUTE ENCEPHALOPATHY,BETTINA,UTI Physical Exam Vital Signs: Temp Pulse Resp BP Pulse Ox 98.5 F 65 16 153/89 H 100 08/07/19 07:33 08/07/19 07:33 08/07/19 07:33 08/07/19 07:33 08/07/19 07:33 Intake & Output 08/06/19 08/07/19 08/08/19 06:59 06:59 06:59 Intake Total 690 1290 50 Output Total 1200 761 Balance -510 529 50 Weight 53.9 kg 54.5 kg General appearance: PRESENT: no acute distress, other - Pain but arouses easily Respiratory exam: PRESENT: clear to auscultation quiana. ABSENT: rales, rhonchi, wheezes Cardiovascular exam: PRESENT: RRR. ABSENT: diastolic murmur, rubs, systolic murmur Neurological exam: PRESENT: other - She appears confused but this may be her baseline she has a history of Alzheimer's Results Laboratory Results: 08/07/19 04:46 08/07/19 04:46 08/07/19 08/07/19 04:46 04:46 WBC 7.0 RBC 5.72 H Hgb 14.8 D Hct 45.2 MCV 79 L MCH 25.9 L MCHC 32.8 RDW 16.7 H Plt Count 226 Sodium 134.4 L Potassium 3.7 Chloride 103 Carbon Dioxide 22 Anion Gap 9 BUN 14 Creatinine 0.86 Est GFR ( Amer) > 60 Glucose 72 L Calcium 8.9 08/04/19 10:45 Troponin I 0.014 Impressions: Chest X-Ray 08/04/19 09:57 IMPRESSION: NO ACUTE RADIOGRAPHIC FINDING IN THE CHEST. Head CT 08/04/19 09:57 IMPRESSION: CHRONIC CHANGES OF ATROPHY AND MICROVASCULAR ISCHEMIA. Marked leftward sphenoid sinus disease. NO ACUTE PROCESS. EVIDENCE OF ACUTE STROKE: NO. Assessment and Plan - Diagnosis (1) UTI (urinary tract infection) Is this a current diagnosis for this admission?: Yes Plan: 08/07/2019 repeat urine done yesterday shows a moderate amount of leukocytes negative nitrates moderate amount of blood greater than 180 white cells. Urine culture showed gram-negative rods previous urine culture showed E. coli. She is currently on Rocephin 1 g daily (2) Atrial fibrillation Is this a current diagnosis for this admission?: Yes Plan: 08/07/2019 patient currently taking Eliquis 2.5 mg every 12 hours. Admission EKG showed atrial fib with a ventricular rate of 70-90 (3) Altered mental status Qualifiers: Altered mental status type: unspecified Qualified Code(s): R41.82 - Altered mental status, unspecified Is this a current diagnosis for this admission?: Yes Plan: 08/07/2019 patient had a UTI on admission which could account for her altered mental status. This is been treated with Rocephin now patient may be back to her baseline confusion status (4) Dementia Is this a current diagnosis for this admission?: Yes Plan: Management of acute encephalopathy as above. Supportive care. Fall precautions. Continue scheduled Risperdal. Of note, the patient is in the custody of [facility]; all goals of care discussions with need to be directed to their office. 08/07/2019 patient has a history of dementia patient may be back to her baseline currently. - Time Time Spent with patient: 35 or more minutes
[2019-08-07] MEDS: NORMAL SALINE 1000 ML 1,000 ML IV PRN (16:36)
[2019-08-07] MEDS: TAMSULOSIN HCL 0.4 MG CAP.SR.24H PO SCH (17:57)
[2019-08-07] MEDS: FLUTICASONE NASAL SPRAY 50 MCG/SPRY 120 SPRAY/16 GM NASL SCH (17:57)
[2019-08-07] MEDS: ATORVASTATIN CALCIUM 20 MG TABLET PO SCH (22:11)
[2019-08-08] MEDS: INSULIN LISPRO 100 UNIT/ML 3 ML VIAL SUBCUT SCH ×4 (07:59→21:24)
[2019-08-08] MEDS ORDERED: INFLUENZA QUAD (6MOS+) 2019-20 VAC 0.5 ML SYR IM ONE (08:00)
[2019-08-08] MEDS: PANTOPRAZOLE SODIUM 40 MG TABLET.DR PO SCH (08:12)
[2019-08-08] MEDS: METHIMAZOLE 5 MG TABLET PO SCH ×2 (09:33→17:28)
[2019-08-08] MEDS: APIXABAN 2.5 MG TABLET PO SCH ×2 (09:33→21:22)
[2019-08-08] MEDS: METOPROLOL TARTRATE 50 MG TABLET PO SCH ×2 (09:34→21:21)
[2019-08-08] MEDS: DOCUSATE SODIUM 100 MG CAPSULE PO SCH (09:56)
[2019-08-08] MEDS: TOLTERODINE TARTRATE 1 MG TABLET PO SCH ×2 (09:56→21:25)
[2019-08-08] MEDS: RANOLAZINE 500 MG TAB.SR.12H PO SCH ×2 (09:57→21:24)
[2019-08-08] MEDS: LUBIPROSTONE 24 MCG CAPSULE PO SCH ×2 (09:57→17:27)
[2019-08-08] MEDS: RISPERIDONE 1 MG TABLET PO SCH ×2 (09:57→21:23)
[2019-08-08] MEDS: CEFTRIAXONE 1 GM/D5W RTU 1 GM/50 ML RTUPB IV SCH (09:59)
--- NOTE | 2019-08-08 11:11 | PDOC PROGRESS REPORT ---
Subjective Progress Note for:: 08/08/19 Subjective:: 08/07/19 08/07/2019 patient was admitted for altered mental status secondary to UTI, patient is improving 08-08-19 she had a bladder scan today and she had 500 and mils in her bladder. Patient refused straight cath. Patient has a diaper on the nurses asked to let the patient continue to try to void on her own obviously incontinent. Will bladder scan in the next 2 to 3 hours if patient fails to void Hopefully plan to discharge patient from hospital tomorrow. Will reconsult discharge planning in anticipation Reason For Visit: ACUTE ENCEPHALOPATHY,BETTINA,UTI Physical Exam Vital Signs: Temp Pulse Resp BP Pulse Ox 97.6 F 73 12 157/69 H 100 08/08/19 07:33 08/08/19 07:33 08/08/19 07:33 08/08/19 07:33 08/08/19 07:33 Intake & Output 08/07/19 08/08/19 08/09/19 06:59 06:59 06:59 Intake Total 1290 1471 Output Total 761 Balance 529 1471 Weight 54.5 kg 56 kg General appearance: PRESENT: no acute distress, other - Patient seems pleasantly confused, however she is able to carry on conversation Respiratory exam: PRESENT: clear to auscultation quiana. ABSENT: rales, rhonchi, wheezes Cardiovascular exam: PRESENT: RRR. ABSENT: diastolic murmur, rubs, systolic murmur GI/Abdominal exam: PRESENT: normal bowel sounds, soft, other - She has a well- healed abdominal incision the abdomen is soft and nontender. ABSENT: distended, guarding, mass, organolmegaly, rebound, tenderness Neurological exam: PRESENT: alert, awake, CN II-XII grossly intact. ABSENT: motor sensory deficit Psychiatric exam: PRESENT: appropriate affect, normal mood. ABSENT: homicidal ideation, suicidal ideation Results Laboratory Results: 08/07/19 04:46 08/07/19 04:46 08/06/19 02:00 Catheterized Urine Urine Culture - Final Escherichia Coli Lactobacillus (Vaginal Shu) 08/04/19 12:00 Catheterized Urine Urine Culture - Final Escherichia Coli Aerococcus Urinae 08/04/19 10:45 Troponin I 0.014 Impressions: Chest X-Ray 08/04/19 09:57 IMPRESSION: NO ACUTE RADIOGRAPHIC FINDING IN THE CHEST. Head CT 08/04/19 09:57 IMPRESSION: CHRONIC CHANGES OF ATROPHY AND MICROVASCULAR ISCHEMIA. Marked leftward sphenoid sinus disease. NO ACUTE PROCESS. EVIDENCE OF ACUTE STROKE: NO. Assessment and Plan - Diagnosis (1) UTI (urinary tract infection) Is this a current diagnosis for this admission?: Yes (2) Atrial fibrillation Is this a current diagnosis for this admission?: Yes (3) Altered mental status Qualifiers: Altered mental status type: unspecified Qualified Code(s): R41.82 - Altered mental status, unspecified Is this a current diagnosis for this admission?: Yes (4) Dementia Is this a current diagnosis for this admission?: Yes - Plan Summary Summary: Patient's urine culture grew out E. coli both the and the . She was admitted her white count was 11,700 yesterday it was 7000. Patient's glucose levels are running anywhere from 72-178 Patient's electrolytes are normal. Patient is taking Tapazole 5 mg twice daily, Eliquis 2.5 mg twice daily Lopressor 50 mg twice daily, Ranexa 500 mg twice daily Detrol 1 mg every 12 hours, Rocephin 1 g IV daily. Risperdal 0.25 mg every 6 hours as needed and Flomax 0.4 mg daily Normal saline running at 50 mL's per hour Discharge planning will be consulted to see about discharging tomorrow back to her facility, [facility]. - Time Time Spent with patient: 25-34 minutes
[2019-08-08] MEDS: POLYETHYLENE GLYCOL 3350 POWDER 17 GM/1 PACKET PO SCH (14:11)
[2019-08-08] MEDS: NORMAL SALINE 1000 ML 1,000 ML IV PRN (14:12)
[2019-08-08] MEDS: TAMSULOSIN HCL 0.4 MG CAP.SR.24H PO SCH (17:27)
[2019-08-08] MEDS: FLUTICASONE NASAL SPRAY 50 MCG/SPRY 120 SPRAY/16 GM NASL SCH (17:33)
[2019-08-08] MEDS: ATORVASTATIN CALCIUM 20 MG TABLET PO SCH (21:22)
[2019-08-09] MEDS: PANTOPRAZOLE SODIUM 40 MG TABLET.DR PO SCH ×2 (05:29→05:37)
[2019-08-09] MEDS: INSULIN LISPRO 100 UNIT/ML 3 ML VIAL SUBCUT SCH ×3 (07:31→16:33)
[2019-08-09] MEDS: CEFTRIAXONE 1 GM/D5W RTU 1 GM/50 ML RTUPB IV SCH (10:13)
[2019-08-09] MEDS: DOCUSATE SODIUM 100 MG CAPSULE PO SCH (10:17)
[2019-08-09] MEDS: LUBIPROSTONE 24 MCG CAPSULE PO SCH (10:17)
[2019-08-09] MEDS: APIXABAN 2.5 MG TABLET PO SCH (10:18)
[2019-08-09] MEDS: RANOLAZINE 500 MG TAB.SR.12H PO SCH (10:18)
[2019-08-09] MEDS: POLYETHYLENE GLYCOL 3350 POWDER 17 GM/1 PACKET PO SCH (10:18)
[2019-08-09] MEDS: METHIMAZOLE 5 MG TABLET PO SCH (10:18)
[2019-08-09] MEDS: RISPERIDONE 1 MG TABLET PO SCH (10:18)
[2019-08-09] MEDS: TOLTERODINE TARTRATE 1 MG TABLET PO SCH (10:18)
[2019-08-09] MEDS: METOPROLOL TARTRATE 50 MG TABLET PO SCH (10:18)
[2019-08-09 12:50] VITALS: BP 148/51
--- NOTE | 2019-08-09 13:34 | PDOC TRANSFER SUMMARY ---
Impression - Admit/DC Date/PCP Admission Date/Primary Care Provider: 08/05/19 15:12 Discharge Date: 08/09/19 - Discharge Diagnosis (1) UTI (urinary tract infection) Is this a current diagnosis for this admission?: Yes (2) Atrial fibrillation Is this a current diagnosis for this admission?: Yes (3) Altered mental status Is this a current diagnosis for this admission?: Yes (4) Dementia Is this a current diagnosis for this admission?: Yes (5) Hyperthyroidism Is this a current diagnosis for this admission?: Yes - Assessment Summary: Patient's urine culture grew out E. coli both the and the . She was admitted her white count was 11,700 yesterday it was 7000. Patient's glucose levels are running anywhere from 72-178 Patient's electrolytes are normal. Patient is taking Tapazole 5 mg twice daily, Eliquis 2.5 mg twice daily Lopressor 50 mg twice daily, Ranexa 500 mg twice daily Detrol 1 mg every 12 hours, Rocephin 1 g IV daily. Risperdal 0.25 mg every 6 hours as needed and Flomax 0.4 mg daily Normal saline running at 50 mL's per hour Discharge planning will be consulted to see about discharging tomorrow back to her facility, [facility]. Patient's altered mental status is probably due to either urinary tract infection or acute renal insufficiency causing metabolic effects. 08/09/2019 recent CBC showed a white count 7000 H&H 14.8 45.2 platelets 226,000 Sodium 134 potassium 3.7 BUN 14 creatinine 0.86, hemoglobin A1c 8.0 Urine control cultures growing out E. coli, sensitive to all antibiotics CT head scan showed only chronic changes with atrophy and microvascular ischemia, also left sphenoid sinus disease but no acute process, no stroke Patient is medically stable and back at her baseline, patient is voiding in her diaper per usual. Patient will be sent out on 5 days of Keflex 250 mg every 8 hours also her Flomax 0.4 mg 30 tablets and Lipitor 20 mg 30 tablets - Additional Information Resuscitation Status: Full Code Discharge Diet: Diabetic Discharge Activity: Balance Activity w/Rest Referrals: [facility] [Outside] Prescriptions: Tamsulosin HCl [Flomax 0.4 mg Cap.sr] 0.4 mg PO PCSUPPER #30 cap.sr.24h Atorvastatin Calcium [Lipitor 20 mg Tablet] 20 mg PO QHS #30 Home Medications: Acetaminophen [Tylenol 325 mg Tablet] 650 mg PO Q6HP PRN 08/04/19 Cold Cream/Zinc Oxide/Star/Alexi [Dermacloud Ointment] 1 applic TP ASDIR PRN 08/04/19 Furosemide [Lasix 20 mg Tablet] 20 mg PO DAILY 08/04/19 Guaifenesin [Robafen] 10 ml PO Q4HP PRN 08/04/19 Linagliptin [Tradjenta] 5 mg PO DAILY 08/04/19 Lubiprostone [Amitiza 24 Mcg Capsule] 24 mcg PO BID 08/04/19 Magnesium Hydroxide [Milk of Magnesia 30 ml Udcup] 30 ml PO ASDIR PRN 08/04/19 Methimazole [Northyx] 5 mg PO BID 08/04/19 Metoprolol Tartrate [Lopressor 50 mg Tablet] 50 mg PO Q12 08/04/19 Neomycin/Bacitracin/Polymyxinb [Triple Antibiotic Ointment] 1 each TP ASDIR PRN 08/04/19 Omeprazole 40 mg PO DAILY 08/04/19 Ranolazine [Ranolazine ER] 500 mg PO BID 08/04/19 Risperidone [Risperdal 1 mg Tablet] 1 mg PO Q12 08/04/19 Risperidone [Risperdal 1 mg Tablet] 1 mg PO Q6HP PRN 08/04/19 Solifenacin Succinate [Vesicare] 5 mg PO DAILY 08/04/19 Triamcinolone Acetonide [Aristocort 0.1% Cream] 1 applic TP BIDP PRN 08/04/19 Acetaminophen [Tylenol 325 mg Tablet] 650 mg PO Q4HP PRN tablet 08/09/19 Atorvastatin Calcium [Lipitor 20 mg Tablet] 20 mg PO QHS #30 08/09/19 Methimazole [Tapazole 5 mg Tablet] 5 mg PO BID tablet 08/09/19 Polyethylene Glycol 3350 [Miralax Powder 17 gm/Packet] 17 gm PO DAILY powd.pack 08/09/19 Tamsulosin HCl [Flomax 0.4 mg Cap.sr] 0.4 mg PO PCSUPPER #30 cap.sr.24h 08/09/19 History of Present Illiness History of Present Illness: PENNY WALDEN is a 89 year old female Physical Exam Vital Signs: Temp Pulse Resp BP Pulse Ox 97.8 F 75 17 148/51 H 98 08/09/19 12:33 08/09/19 12:33 08/09/19 12:33 08/09/19 12:33 08/09/19 12:33 Intake & Output 08/08/19 08/09/19 08/10/19 06:59 06:59 06:59 Intake Total 1471 1150 50 Balance 1471 1150 50 Weight 56 kg 57.5 kg Results Laboratory Results: WBC 7.0 10^3/uL (4.0-10.5) 08/07/19 04:46 RBC 5.72 10^6/uL (3.72-5.28) H 08/07/19 04:46 Hgb 14.8 g/dL (12.0-15.5) D 08/07/19 04:46 Hct 45.2 % (36.0-47.0) 08/07/19 04:46 MCV 79 fl (80-97) L 08/07/19 04:46 MCH 25.9 pg (27.0-33.4) L 08/07/19 04:46 MCHC 32.8 g/dL (32.0-36.0) 08/07/19 04:46 RDW 16.7 % (11.5-14.0) H 08/07/19 04:46 Plt Count 226 10^3/uL (150-450) 08/07/19 04:46 Lymph % (Auto) Not Reportable 08/04/19 10:45 Schleicher % (Auto) Not Reportable 08/04/19 10:45 Eos % (Auto) Not Reportable 08/04/19 10:45 Baso % (Auto) Not Reportable 08/04/19 10:45 Absolute Neuts (auto) Not Reportable 08/04/19 10:45 Absolute Lymphs (auto) Not Reportable 08/04/19 10:45 Absolute Monos (auto) Not Reportable 08/04/19 10:45 Absolute Eos (auto) Not Reportable 08/04/19 10:45 Absolute Basos (auto) Not Reportable 08/04/19 10:45 Total Counted 100 08/04/19 10:45 Seg Neutrophils % Not Reportable 08/04/19 10:45 Seg Neuts % (Manual) 67 % (42-78) 08/04/19 10:45 Band Neutrophils % 1 % (3-5) L 08/04/19 10:45 Lymphocytes % (Manual) 22 % (13-45) 08/04/19 10:45 Monocytes % (Manual) 8 % (3-13) 08/04/19 10:45 Eosinophils % (Manual) 0 % (0-6) 08/04/19 10:45 Basophils % (Manual) 0 % (0-2) 08/04/19 10:45 Metamyelocytes % 2 % (0) H 08/04/19 10:45 Abs Neuts (Manual) 8.2 10^3/uL (1.7-8.2) 08/04/19 10:45 Abs Lymphs (Manual) 2.6 10^3/uL (0.5-4.7) 08/04/19 10:45 Abs Monocytes (Manual) 0.9 10^3/uL (0.1-1.4) 08/04/19 10:45 Absolute Eos (Manual) 0.0 10^3/uL (0.0-0.6) 08/04/19 10:45 Abs Basophils (Manual) 0.0 10^3/uL (0.0-0.2) 08/04/19 10:45 Large Platelets PRESENT 08/04/19 10:45 Giant Platelets PRESENT 08/04/19 10:45 Platelet Comment INCREASED 08/04/19 10:45 Anisocytosis 1+ 08/04/19 10:45 Sodium 134.4 mmol/L (137-145) L 08/07/19 04:46 Potassium 3.7 mmol/L (3.6-5.0) 08/07/19 04:46 Chloride 103 mmol/L (98-107) 08/07/19 04:46 Carbon Dioxide 22 mmol/L (22-30) 08/07/19 04:46 Anion Gap 9 (5-19) 08/07/19 04:46 BUN 14 mg/dL (7-20) 08/07/19 04:46 Creatinine 0.86 mg/dL (0.52-1.25) 08/07/19 04:46 Est GFR ( Amer) > 60 (>60) 08/07/19 04:46 Est GFR (MDRD) Non-Af > 60 (>60) 08/07/19 04:46 Glucose 72 mg/dL (75-110) L 08/07/19 04:46 POC Glucose 110 mg/dL (70-110) 08/09/19 11:48 Hemoglobin A1c % 8.0 % (4.7-6.0) H 08/05/19 05:14 Lactic Acid 1.3 mmol/L (0.7-2.1) 08/04/19 13:45 Calcium 8.9 mg/dL (8.4-10.2) 08/07/19 04:46 Magnesium 2.1 mg/dL (1.6-2.3) 08/04/19 10:45 Total Bilirubin 0.9 mg/dL (0.2-1.3) 08/04/19 10:45 Direct Bilirubin 0.4 mg/dL (0.0-0.4) 08/04/19 10:45 Neonat Total Bilirubin Not Reportable 08/04/19 10:45 Neonat Direct Bilirubin Not Reportable 08/04/19 10:45 Neonat Indirect Bili Not Reportable 08/04/19 10:45 AST 37 U/L (14-36) H 08/04/19 10:45 ALT 28 U/L (<35) 08/04/19 10:45 Alkaline Phosphatase 123 U/L (38-126) 08/04/19 10:45 Troponin I 0.014 ng/mL 08/04/19 10:45 Total Protein 8.5 g/dL (6.3-8.2) H 08/04/19 10:45 Albumin 4.0 g/dL (3.5-5.0) 08/04/19 10:45 TSH 1.13 uIU/mL (0.47-4.68) 08/05/19 05:14 Free T4 1.65 ng/dL (0.78-2.19) 08/05/19 05:14 Urine Color YELLOW 08/06/19 02:00 Urine Appearance TURBID 08/06/19 02:00 Urine pH 5.0 (5.0-9.0) 08/06/19 02:00 Ur Specific [place] 1.006 08/06/19 02:00 Urine Protein 100 mg/dL (NEGATIVE) H 08/06/19 02:00 Urine Glucose (UA) NEGATIVE mg/dL (NEGATIVE) 08/06/19 02:00 Urine Ketones NEGATIVE mg/dL (NEGATIVE) 08/06/19 02:00 Urine Blood MODERATE (NEGATIVE) H 08/06/19 02:00 Urine Nitrite NEGATIVE (NEGATIVE) 08/06/19 02:00 Urine Bilirubin NEGATIVE (NEGATIVE) 08/06/19 02:00 Urine Urobilinogen NEGATIVE mg/dL (<2.0) 08/06/19 02:00 Ur Leukocyte Esterase MODERATE (NEGATIVE) H 08/06/19 02:00 Urine WBC (Auto) >182 /HPF 08/06/19 02:00 Urine RBC (Auto) >182 /HPF 08/06/19 02:00 Urine Bacteria (Auto) 3+ /HPF 08/06/19 02:00 Urine WBC Clumps MANY /HPF 08/06/19 02:00 Squamous Epi Cells Auto 1 /HPF 08/04/19 12:00 Amorphous Sediment Auto 1+ /HPF 08/06/19 02:00 Urine Mucus (Auto) RARE /LPF 08/04/19 12:00 Urine Ascorbic Acid NEGATIVE (NEGATIVE) 08/06/19 02:00 08/04/19 10:45 Troponin I 0.014 Impressions: Chest X-Ray 08/04/19 09:57 IMPRESSION: NO ACUTE RADIOGRAPHIC FINDING IN THE CHEST. Head CT 08/04/19 09:57 IMPRESSION: CHRONIC CHANGES OF ATROPHY AND MICROVASCULAR ISCHEMIA. Marked leftward sphenoid sinus disease. NO ACUTE PROCESS. EVIDENCE OF ACUTE STROKE: NO. Stroke Is this a Stroke Patient?: No Acute Heart Failure - Is this a Heart Failure Patient?: No
== END 2019-08-09 16:57 | disposition home health service (06) | DRG 683 ==
LOC: ER 09:30 → EH 15:14 → INTOOBSV 15:14 → OBSVTOIN 15:14 → 4N 20:00 → OBSVTOIN 08-05 15:12 → 4W 08-06 12:59
PROVIDERS: ADMIT Family Medicine; ATTEND Family Medicine
DX: N17.9 Acute kidney failure, unspecified (principal); G93.40 Encephalopathy, unspecified; I48.20 Chronic atrial fibrillation, unspecified; N30.01 Acute cystitis with hematuria; E05.90 Thyrotoxicosis, unspecified without thyrotoxic crisis or storm; E11.9 Type 2 diabetes mellitus without complications; B96.20 Unspecified Escherichia coli [E. coli] as the cause of diseases classified elsewhere; G30.9 Alzheimer's disease, unspecified; F02.80 Dementia in other diseases classified elsewhere, unspecified severity, without behavioral disturbance, psychotic disturbance, mood disturbance, and anxiety; I25.10 Atherosclerotic heart disease of native coronary artery without angina pectoris; E78.5 Hyperlipidemia, unspecified; E03.9 Hypothyroidism, unspecified; K21.9 Gastro-esophageal reflux disease without esophagitis; K59.09 Other constipation; R33.9 Retention of urine, unspecified; E86.0 Dehydration; Z79.01 Long term (current) use of anticoagulants; Z79.899 Other long term (current) drug therapy; Z74.01 Bed confinement status
CPT/HCPCS: 36415; 51701; 70450; 71045; 80048; 80053; 81001; 82962; 83036; 83605; 83735; 84439; 84443; 84484; 85025; 85027; 87040; 87086; 87088; 87186; 93005; 93010; 96361; 96365; 99285; G0378; J0696; J2405; J3490; J7030; J7040

== ENCOUNTER 2019-08-19 22:18 | Emergency (ER) | payer MEDICARE, MEDICAID ==
--- NOTE | 2019-08-19 22:36 | ER Document Report ---
ED General - General Stated Complaint: FAILING TO THRIVE Time Seen by Provider: 08/19/19 22:36 TRAVEL OUTSIDE OF THE [place] IN LAST 30 DAYS: No - HPI Patient complains to provider of: ams Notes: 89 y/o at [facility] for dementia presenting to ED for evaluation of no po intake for 3 days she is currently a z[place] of the state and not comfort care she had fever at their facility prior to being sent to the ED no vomiting/diarrhea reported history limited secondary to dementia - Related Data Allergies/Adverse Reactions: No Known Allergies Allergy (Unverified 07/20/19 20:07) Past Medical History - Social History Smoking Status: Unknown if Ever Smoked Family History: Reviewed & Not Pertinent - Past Medical History Cardiac Medical History: Reports: Hx Atrial Fibrillation, Hx Congestive Heart Failure Endocrine Medical History: Reports: Hx Diabetes Mellitus Type 2, Hx Hyperthyroidism GI Medical History: Reports: Hx Gastroesophageal Reflux Disease Psychiatric Medical History: Reports: Hx Dementia Review of Systems - Review of Systems -: Yes ROS unobtainable due to patient's medical condition - dementia Physical Exam - Vital signs Vitals: Resp 15 08/19/19 22:32 - General General appearance: Appears well In distress: None - HEENT Head: Normocephalic, Atraumatic Pupils: PERRL Mucous membranes: Dry Pharynx: Normal - Respiratory Respiratory status: No respiratory distress Chest status: Nontender Breath sounds: Normal - Cardiovascular Rhythm: Regular Heart sounds: Normal auscultation Murmur: Yes Normal capillary refill: Yes - Abdominal Inspection: Normal Distension: No distension Bowel sounds: Normal Tenderness: Nontender - Extremities General upper extremity: Normal inspection General lower extremity: Normal inspection - Neurological Orientation: Disoriented to place, Disoriented to time, Disoriented to events Notes: moves all extremities weakly. only oriented to self - Skin Skin Temperature: Warm Skin Moisture: Dry Course - Re-evaluation Re-evalutation: 08/20/19 00:55 patient altered w/ UTI on UA rocephin started in ED not in shock needs strong consideration of comfort measures given dementia - Vital Signs Vital signs: Temp Pulse Resp BP Pulse Ox 98.9 F 13 172/66 H 99 08/19/19 22:51 08/20/19 00:01 08/20/19 00:01 08/20/19 00:01 - Laboratory Result Diagrams: 08/19/19 23:25 08/19/19 23:25 Laboratory results interpreted by me: 08/19/19 08/19/19 08/19/19 23:25 23:25 23:45 MCV 79 L MCH 26.0 L RDW 18.4 H Monocytes % (Manual) 15 H Potassium 3.4 L Chloride 97 L Direct Bilirubin 0.6 H Albumin 3.3 L Urine Ketones TRACE H Leukocyte Esterase Rfl MODERATE H - Diagnostic Test Radiology reviewed: Image reviewed, Reports reviewed Discharge - Discharge Clinical Impression: Acute encephalopathy, Dementia UTI (urinary tract infection) Qualifiers: Urinary tract infection type: acute cystitis Hematuria presence: without hematuria Qualified Code(s): N30.00 - Acute cystitis without hematuria Condition: Stable Disposition: ADMITTED INPATIENT Admitting Provider: Chris (Hospitalist) Unit Admitted: Medical Floor
[2019-08-19] MEDS ORDERED: NORMAL SALINE 500 ML IV ONE (22:51)
[2019-08-19 23:53] LABS: HEMATOCRIT 40.7 % (36.0-47.0); HEMOGLOBIN 13.4 g/dL (12.0-15.5); MEAN CORPUSCULAR HGB CONC 32.9 g/dL (32.0-36.0); MEAN CORPUSCULAR VOLUME 79 fl (80-97); PLATELET COUNT 311 10^3/uL (150-450); RED BLOOD COUNT 5.15 10^6/uL (3.72-5.28); RED CELL DISTRIBUTION WIDTH 18.4 % (11.5-14.0); WHITE BLOOD COUNT 8.5 10^3/uL (4.0-10.5)
[2019-08-20 00:03] LABS: ALBUMIN 3.3 g/dL (3.5-5.0); ALKALINE PHOSPHATASE 111 U/L (38-126); ANION GAP 17 (5-19); ASPARTATE AMINO TRANSFERASE 28 U/L (14-36); BILIRUBIN,DIRECT 0.6 mg/dL (0.0-0.4); BILIRUBIN,TOTAL 1.3 mg/dL (0.2-1.3); BLOOD UREA NITROGEN 17 mg/dL (7-20); CALCIUM 9.3 mg/dL (8.4-10.2); CARBON DIOXIDE 24 mmol/L (22-30); CHLORIDE 97 mmol/L (98-107); CREATINE KINASE 47 U/L (30-135); GLUCOSE 99 mg/dL (75-110); POTASSIUM 3.4 mmol/L (3.6-5.0)
[2019-08-20 00:10] LABS: APPEARANCE,URINE CLOUDY; BILIRUBIN,URINE NEGATIVE (NEGATIVE); COLOR,URINE AMBER; GLUCOSE, URINE NEGATIVE (NEGATIVE); KETONES,URINE TRACE mg/dL (NEGATIVE); PROTEIN,URINE NEGATIVE (NEGATIVE); URINE SPECIFIC GRAVITY 1.016; UROBILINOGEN,URINE NEGATIVE mg/dL (<2.0)
[2019-08-20 00:19] LABS: ABSOLUTE MONOCYTES # (MANUAL) 1.3 10^3/uL (0.1-1.4); ANISOCYTOSIS 1+; BASOPHILS % (MANUAL) 0 % (0-2); EOSINOPHILS % (MANUAL) 1 % (0-6); HYPOCHROMASIA SLIGHT; LYMPHOCYTES % (MANUAL) 23 % (13-45); MONOCYTES % (MANUAL) 15 % (3-13); PLATELET COMMENT ADEQUATE; SEGMENTED NEUTROPHILS % (MAN) 61 % (42-78); TOTAL CELLS COUNTED 100
[2019-08-20] MEDS ORDERED: CEFTRIAXONE 1 GM/D5W RTU 1 GM/50 ML RTUPB IV ONE (00:30)
--- NOTE | 2019-08-20 00:37 | RADIOLOGY REPORT (SQ) ---
EXAM DESCRIPTION: XR CHEST 1 VIEW COMPLETED DATE/TME: 08/19/2019 00:00 CLINICAL HISTORY: 89 years, Female, cough COMPARISON: 08/04/2019 NUMBER OF VIEWS: One TECHNIQUE: AP view of the chest LIMITATIONS: None. FINDINGS: The lungs are clear. 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 There is no pneumothorax or pleural effusion. The bones are demineralized. There are changes of a right shoulder arthroplasty. Left axillary clips are noted. IMPRESSION: No acute cardiopulmonary abnormality copyright 2010 [employer]- All Rights Reserved
--- NOTE | 2019-08-20 01:43 | RADIOLOGY REPORT (SQ) ---
CLINICAL HISTORY: decreased po intake COMPARISON: None. TECHNIQUE: XR ABDOMEN 1 VIEW (KUB) 08/20/2019 1:13 AM CDT FINDINGS: Bowel gas pattern is nonspecific. There is severe narrowing of the right hip joint with moderate narrowing of the left hip joint. There are surgical clips in the mid abdomen. Right upper quadrant surgical clips are noted. Osseous structures are grossly unremarkable. IMPRESSION: No bowel obstruction.
--- NOTE | 2019-08-20 02:07 | ER Document Report ---
Doctor's Note Notes: 08/20/19 02:06 patient was discussed with Dr Perez of hospitalist service who reviewed the case. He recommends discharge as she does not meet admission criteria. He recommends against treating her with antibiotics until the urine culture actually shows an infection. No clear explanation for reported fever found in ED although CXR and UA largely ok and no recurrence of fever here despite no antipyretic administration
[2019-08-20 02:20] VITALS: BP 133/62
== END 2019-08-20 02:45 ==
LOC: ER 22:18 → EH 08-20 01:25 → UNDOADMIN 08-20 01:25 → ER 08-20 02:45
DX: N30.00 Acute cystitis without hematuria (principal); G93.40 Encephalopathy, unspecified; F03.90 Unspecified dementia, unspecified severity, without behavioral disturbance, psychotic disturbance, mood disturbance, and anxiety
CPT/HCPCS: 99285; 96361; 96365; 36415; 87040; 87086; 82550; 83605; 85025; 80053; 81001; 84484; 71045; 74018; J7040; J0696